=== PATIENT | female | born 1970 | race Caucasian/White ===

== ENCOUNTER → 2016-10-16 | Outpatient (CLI) | payer BC ==
--- NOTE | 2016-10-16 11:21 | MM ---
Reason for exam: follow-up at short interval from prior study. Last mammogram was performed 9 months ago. History: Patient is postmenopausal. Family history of breast cancer in maternal grandmother at age 42. Benign US biopsy breast VAD LT of the left breast, January 06, 2016. Benign US biopsy breast add'l VAD LT of the left breast, January 06, 2016. Benign US biopsy breast add'l VAD LT of the left breast, January 06, 2016. Physical Findings: Nurse did not find any significant physical abnormalities on exam. MG Diagnostic Mammo LT w CAD CC and MLO view(s) were taken of the left breast. Prior study comparison: January 06, 2016, left breast MG diagnostic mammo LT wo CAD. December 16, 2015, bilateral US breast workup SHAZIA. December 16, 2015, bilateral MG work up mamm w CAD BILAT. There are scattered fibroglandular densities. There is chronic nodularity in the left breast. These results were verbally communicated with the patient and result sheet given to the patient on 10/16/16. ASSESSMENT: Benign, BI-RAD 2 RECOMMENDATION: Follow-up diagnostic mammogram of both breasts in 2 months. Back on schedule December 2016.
--- NOTE | 2016-10-16 11:21 | USB ---
Reason for exam: additional evaluation requested from abnormal screening. History: Patient is postmenopausal. Family history of breast cancer in maternal grandmother at age 42. Benign US biopsy breast VAD LT of the left breast, January 06, 2016. Benign US biopsy breast add'l VAD LT of the left breast, January 06, 2016. Benign US biopsy breast add'l VAD LT of the left breast, January 06, 2016. US Breast LT Left breast ultrasound includes all four quadrants, the retroareolar region and axilla. Finding demonstrate a 0.5 x 0.9 x 0.2cm oval, too small to characterize lesion at 7 o'clock, and a 0.8 x 0.7 x 0.6cm benign lymph node at the axilla tail. These results were verbally communicated with the patient and result sheet given to the patient on 10/16/16. ASSESSMENT: Probably benign, BI-RAD 3 RECOMMENDATION: Follow-up diagnostic mammogram of both breasts in 2 months. Back on schedule December 2016.
== END | disposition home or self-care (01) ==
LOC: RADMAMWWP 07:32
PROVIDERS: ATTEND Family Medicine
DX: N60.12 Diffuse cystic mastopathy of left breast (principal)
CPT/HCPCS: 76641; G0206

== ENCOUNTER → 2016-12-20 | Outpatient (CLI) | payer BC ==
--- NOTE | 2016-12-20 08:29 | MM ---
Reason for exam: follow-up at short interval from prior study. Last mammogram was performed 2 months ago. History: Patient is postmenopausal. Family history of breast cancer in maternal grandmother at age 42. Benign US biopsy breast VAD LT of the left breast, January 06, 2016. Benign US biopsy breast add'l VAD LT of the left breast, January 06, 2016. Benign US biopsy breast add'l VAD LT of the left breast, January 06, 2016. Physical Findings: Nurse did not find any significant physical abnormalities on exam. MG Diagnostic Mammo w CAD SHAZIA Bilateral CC and MLO view(s) were taken. Prior study comparison: October 16, 2016, left breast MG diagnostic mammo LT w CAD. January 06, 2016, left breast MG diagnostic mammo LT wo CAD. There are scattered fibroglandular densities. Previous mammotome biopsy in the left breast x 3. There is chronic nodularity bilaterally. Asymmetric density superior right breast middle to posterior depth does not persist on additional views. No significant new findings when compared with previous films. These results were verbally communicated with the patient and result sheet given to the patient on 12/20/16. ASSESSMENT: Benign, BI-RAD 2 RECOMMENDATION: Routine screening mammogram of both breasts in 1 year.
== END | disposition home or self-care (01) ==
LOC: RADMAMWWP 07:00
PROVIDERS: ATTEND Family Medicine
DX: R92.8 Other abnormal and inconclusive findings on diagnostic imaging of breast (principal)

== ENCOUNTER 2017-09-07 10:19 | Day surgery (SDC) | payer BC ==
[2017-09-06 11:08] VITALS: BMI 30.1
[~2017-09-07 10:19] MED LIST: LACTATED RINGERS 1,000 ML IV SCH
[2017-09-07] MEDS ORDERED: PROPOFOL 10 MG/ML 20 ML VIAL IV ONE (11:19)
--- NOTE | 2017-09-07 11:43 | P.PCN ---
Date of Procedure: 09/07/17 Procedure(s) Performed: BRIEF HISTORY: Patient is a 47-year-old pleasant white female, scheduled for an elective colonoscopy as a part of the [place] she of prior history of colon polyps and family history of colon cancer. Her mother was diagnosed with colon cancer as well as her paternal grandmother. PROCEDURE PERFORMED: Colonoscopy with snare polypectomy. PREOPERATIVE DIAGNOSIS: History of colon polyps/family history of colon cancer. IV sedation per Anesthesia. PROCEDURE: After informed consent was obtained, the patient, was brought into the endoscopy unit. IV sedation was administered by Anesthesia under continuous monitoring. Digital rectal examination was normal. Initially the Olympus CF- 160 flexible video colonoscope was then inserted in the rectum, gradually advanced into the cecum without any difficulty. Careful examination was performed as the scope was gradually being withdrawn. Ileocecal valve and the appendiceal orifice were visualized and appeared normal. Prep was excellent. Mucosa of the cecum, ascending colon, appeared normal. In the proximal transverse colon there was a 5 mm sessile polyp removed by snare polypectomy. Rest of the transverse colon, descending colon, sigmoid colon, and rectum appeared normal. In the mid rectum there was another 5 mm sessile polyp removed by snare polypectomy. Retroflexion was performed in the rectum and no lesions were seen. The patient tolerated the procedure well. IMPRESSION: 5 mm sessile transverse colon polyp status post polypectomy 5 mm mid rectal polyp status post polypectomy RECOMMENDATIONS: Findings of this examination were discussed with the patient is a family. She was advised to follow with the biopsy results. If the biopsy shows a tubular adenoma she can have a repeat colonoscopy in 5 years.
[2017-09-07 11:48] VITALS: RESP 16
[2017-09-07 12:01] VITALS: BP 103/60; PULSE 68
== END 2017-09-07 12:28 | disposition home or self-care (01) ==
LOC: ORWHC2ENDO 10:19
PROVIDERS: ATTEND Internal Medicine Gastroenterology
DX: Z12.11 Encounter for screening for malignant neoplasm of colon (principal); D12.3 Benign neoplasm of transverse colon; D12.8 Benign neoplasm of rectum; Z86.010 Personal history of colon polyps; Z80.0 Family history of malignant neoplasm of digestive organs; Z72.0 Tobacco use; Z79.890 Hormone replacement therapy; Z79.899 Other long term (current) drug therapy; Z88.6 Allergy status to analgesic agent; Z91.040 Latex allergy status
CPT/HCPCS: 81025; 88305; 45385; J2704

== ENCOUNTER → 2018-04-10 | Outpatient (CLI) | payer BC ==
--- NOTE | 2018-04-11 08:03 | MM ---
Reason for exam: screening (asymptomatic). Last mammogram was performed 1 year and 4 months ago. History: Patient is postmenopausal. Family history of breast cancer in maternal grandmother at age 42. Benign US biopsy breast VAD LT of the left breast, January 06, 2016. Benign US biopsy breast add'l VAD LT of the left breast, January 06, 2016. Benign US biopsy breast add'l VAD LT of the left breast, January 06, 2016. Physical Findings: A clinical breast exam by your physician is recommended on an annual basis and results should be correlated with mammographic findings. MG Screening Mammo w CAD Bilateral CC and MLO view(s) were taken. Prior study comparison: December 20, 2016, bilateral MG diagnostic mammo w CAD SHAZIA. October 16, 2016, left breast MG diagnostic mammo LT w CAD. There are scattered fibroglandular densities. Previous mammotome biopsy in the right breast x 3. 1 o'clock right breast and 12 o'clock left breast focal asymmetries appear more defined. ASSESSMENT: Incomplete: need additional imaging evaluation, BI-RAD 0 RECOMMENDATION: Special view mammogram of both breasts. If lesion persists on supplemental views, image directed ultrasound is recommended. [facility] will attempt to contact patient to return for supplemental views and ultrasound if indicated.
== END ==
LOC: RADMAMWWP 06:53
PROVIDERS: ATTEND Family Medicine
DX: Z12.31 Encounter for screening mammogram for malignant neoplasm of breast (principal)
CPT/HCPCS: 77067

== ENCOUNTER → 2018-04-29 | Outpatient (CLI) | payer BC ==
--- NOTE | 2018-04-29 08:00 | MM ---
Reason for exam: additional evaluation requested from abnormal screening. Last mammogram was performed 1 month ago. History: Patient is postmenopausal. Family history of breast cancer in maternal grandmother at age 42. Benign US biopsy breast VAD LT of the left breast, January 06, 2016. Benign US biopsy breast add'l VAD LT of the left breast, January 06, 2016. Benign US biopsy breast add'l VAD LT of the left breast, January 06, 2016. Taking estrogen for 1 year beginning at age 47. Taking progesterone for 1 year beginning at age 47. Physical Findings: Nurse did not find any significant physical abnormalities on exam. MG Work Up Mamm w CAD BILAT Bilateral spot compression CC, spot compression MLO, and LM view(s) were taken. Prior study comparison: April 10, 2018, bilateral MG screening mammo w CAD. December 20, 2016, bilateral MG diagnostic mammo w CAD SHAZIA. There are scattered fibroglandular densities. Previous mammotome biopsy in the left breast x 3. Focal asymmetry on the left disperses on additional views. On the right the asymmetric density medially CC view becomes less defined and 6 month follow up is recommended. No persisting abnormality on the other views. These results were verbally communicated with the patient and result sheet given to the patient on 04/29/18. ASSESSMENT: Probably benign, BI-RAD 3 RECOMMENDATION: Follow-up diagnostic mammogram of the right breast in 6 months.
== END | disposition home or self-care (01) ==
LOC: RADMAMWWP 07:04
PROVIDERS: ATTEND Family Medicine
DX: R92.8 Other abnormal and inconclusive findings on diagnostic imaging of breast (principal)
CPT/HCPCS: 77066

== ENCOUNTER 2019-04-24 16:55 | Inpatient (IN) | payer BC ==
[2019-04-24] MEDS ORDERED: VERAPAMIL 2.5 MG/ML 2 ML AMP ONE (17:29)
[2019-04-24] MEDS ORDERED: fentaNYL (PF) 50 MCG/ML 2 ML AMP IVP ONE (17:30)
[2019-04-24] MEDS ORDERED: LIDOCAINE 1% INJ 10MG/ML (20 ML MDV) ONE (17:30)
[2019-04-24] MEDS ORDERED: LIDOCAINE 1% INJ 10MG/ML (20 ML MDV) SQ ONE (17:30)
[2019-04-24] MEDS ORDERED: fentaNYL (PF) 50 MCG/ML 2 ML AMP ONE (17:30)
[2019-04-24] MEDS ORDERED: VERAPAMIL SYRINGE (5 MG/10 ML) INTRAARTER ONE (17:32)
[2019-04-24] MEDS ORDERED: TICAGRELOR 90 MG TAB ONE (17:42)
[2019-04-24] MEDS ORDERED: BIVALIRUDIN 250 MG in SODIUM CHLORIDE 0.9% 50 ML IV ONE (17:45)
[2019-04-24] MEDS ORDERED: BIVALIRUDIN BOLUS 250 MG/50 ML IV ONE (17:45)
[2019-04-24] MEDS ORDERED: TICAGRELOR 90 MG TAB PO ONE (17:45)
[2019-04-24] MEDS ORDERED: IV FLUID CONTINUATION 1,000 ML IV ONE (17:45)
[2019-04-24] MEDS ORDERED: IOPAMIDOL-370 125ML BTL INJ ONE ×2 (17:48→18:06)
[2019-04-24] MEDS ORDERED: RX INFO: IV CONTRAST WAS GIVEN 1 EACH MISC MISCELLANE PRN (18:15)
[2019-04-24] MEDS ORDERED: MAG HYDROX/AL HYDROX/SIMETH 30 ML CUP PO PRN (18:15)
[2019-04-24] MEDS ORDERED: NITROGLYCERIN SL TABS 0.4 MG TAB SUBLINGUAL PRN (18:15)
[2019-04-24] MEDS ORDERED: ATROPINE SULFATE 0.1 MG/ML 10ML SYRINGE IV PRN (18:15)
[2019-04-24] MEDS ORDERED: ZOLPIDEM 5 MG TAB PO PRN (18:15)
[2019-04-24] MEDS ORDERED: SODIUM CHLORIDE 0.9% 1,000 ML IV SCH (18:15)
[2019-04-24 19:18] LABS: Glucose,Whole Blood 107 mg/dL (75-99)
[2019-04-24 19:57] LABS: Cholesterol 207 mg/dL (<200); HDL Cholesterol 60 mg/dL (40-60); LDL Cholesterol,Calculated 131 mg/dL (0-99); Triglycerides 78 mg/dL (<150)
--- NOTE | 2019-04-24 20:13 | CONS ---
CONSULTATION Mrs. Orellana is a 49-year-old female with no prior documented history of coronary artery disease who presented to [facility] with chest and abdominal discomfort that started at 6:00 in the morning and persisted. In the emergency room at [facility], initial EKG showed nonspecific ST-T wave changes. She subsequently had a CT scan of the abdomen and chest that revealed no evidence of aneurysm or dissection, but the patient persisted in having chest pain. Subsequently her EKG showed ST-segment depression and mild troponin elevation. In view of that, she was transferred to [facility] to undergo emergent cardiac catheterization. The patient has no prior documented history of cardiac disease. She has been having this epigastric and lower chest discomfort for a while, at times with mental stress or physical stress, and she thought it was related to GI origin. She has no history of myocardial infarction or congestive heart failure. No PND, orthopnea or peripheral edema. Her coronary risk factors are negative for hypertension or diabetes. Her lipid profile is not available. She is a nonsmoker. As to her medication at home, she is on hormonal treatment for menopause. REVIEW OF SYSTEMS: RESPIRATORY SYSTEM: She has no documented history of asthma, emphysema or bronchitis. GI SYSTEM: No recent GI bleeding. No peptic ulcer disease. SYSTEM: No dysuria or hematuria. NERVOUS SYSTEM: No stroke or seizure. PHYSICAL EXAMINATION: She is a 49-year-old female, alert, oriented, in no apparent distress. Evaluated in the cardiac catheterization laboratory. Blood pressure 140/70 with a heart rate in the 60s. Patient is having moderate discomfort. HEAD: Normocephalic. EYES: Sclerae anicteric. NECK: Good carotid upstroke. No bruit. No jugular venous distention. LUNGS: Clear to auscultation. HEART: Regular rate and rhythm. S1, S2. No S3. No S4. No murmur or rub. ABDOMEN: Soft, nontender, obese. Positive bowel sounds. No organomegaly. EXTREMITIES: No edema. Intact distal pulses. LAB DATA: EKG performed at 1:20 revealed sinus mechanism, normal axis and intervals with minor ST- segment changes in the inferolateral leads. Subsequent EKG showed more prominent ST- segment depression and mild elevation in aVL and V2. Patient had a CT scan that revealed no aneurysmal dilatation. Her potassium 4.6, BUN and creatinine 17 and 0.9. Troponin 2.26. IMPRESSION: 1. Acute qbk-HN-sgnjipd-elevation myocardial infarction. 2. No evidence of aneurysm. RECOMMENDATIONS: In view of findings and anatomy, I have recommended proceeding with cardiac catheterization. The procedure, its risks and complications were discussed with the patient, who is in full understanding and agreement. MMMERLEL / IJN: [id number] /
--- NOTE | 2019-04-24 20:23 | CC ---
CARDIAC CATHETERIZATION REPORT Mrs. Orellana is a 49-year-old female who presented to [facility] with symptoms of epigastric and chest discomfort, had elevation of the troponin, mild EKG changes, and she was transferred to [facility] to undergo cardiac catheterization. The procedure, its risks and complications were discussed with the patient, who was in full understanding and agreement. PROCEDURE DESCRIPTION: Patient was brought to the labor and delivery nurse. She received fentanyl and Benadryl. After achieving moderate conscious sedated state, using Xylocaine anesthesia and Seldinger technique a 6-Bengali sheath was introduced in the right radial artery. Selective right and left coronary angiography was performed with 6-Bengali 3.5 bend right and left Talia guiding catheters. Images of the coronary arteries were performed. Following that, angioplasty and stenting of the diagonal branch was performed. Following that, a 5-Bengali tight pigtail catheter was introduced in the left ventricle and a 30-degree CASTRO view of the left ventricle was obtained. Following that, catheter and sheath were removed. Hemostasis was obtained with deployment of a TR band. There was no immediate complication. Patient was returned to her room in stable condition. Of note, the patient received intra-arterial verapamil. FINDINGS: LEFT MAIN: This is a large-sized vessel bifurcating into left circumflex, left anterior descending artery. Left main coronary artery has no evidence of high-grade stenosis. LEFT ANTERIOR DESCENDING ARTERY: This is a large-sized vessel reaching toward the apex with a wrap around the apex segment giving rise to a moderately sized diagonal branch proximally. The LAD has no evidence of obstructive disease. The diagonal branch is subtotally occluded proximally with minimal antegrade flow. LEFT CIRCUMFLEX: This is a nondominant vessel giving rise to 2 obtuse marginal branches of large caliber. The left circumflex as well as its branches have no evidence of obstructive coronary artery disease. RIGHT CORONARY ARTERY: This is a large dominant vessel bifurcating into PDA and posterolateral segment and branches. The right coronary artery as well as its branches have no evidence of obstructive coronary artery disease. LEFT VENTRICULOGRAM: Left ventriculogram was performed in 30-degree CASTRO view and revealed anteroapical severe hypokinesis. The ejection fraction is estimated at 35%. There was no mitral regurgitation. HEMODYNAMICS: There was no gradient across the aortic valve. The left ventricular end-diastolic pressure was 10 to 12 mmHg. CONCLUSION: 1. Subtotally occluded first diagonal branch. 2. Severely impaired left ventricular systolic function. RECOMMENDATIONS: In view of findings and anatomy, I have recommended proceeding with angioplasty and stenting of the diagonal branch. The procedure, its risks and complications were discussed with the patient, who is in full understanding and agreement. MMMERLEL / KAYKAY: [id number] /
[2019-04-24] MEDS: TICAGRELOR 90 MG TAB PO SCH (20:36)
[2019-04-24] MEDS: METOPROLOL TARTRATE 25 MG TAB PO SCH (20:36)
[2019-04-24] MEDS: ATORVASTATIN 80 MG TAB PO SCH (20:36)
--- NOTE | 2019-04-24 20:44 | LTR ---
April 24, 2019 To: Dr. Linares Re: Bouchra Orellana (72) Dear Dr. Linares, I had the pleasure of performing coronary angiography and angioplasty and stenting on Mrs. Orellana at [facility] on April 24, and a full copy of the procedure notes will be forwarded to you. In brief, she was found to have a subtotally occluded first diagonal branch and underwent successful stenting of that vessel. I am hopeful that this procedure will stabilize her status. Thank you again for allowing me to participate in her care. Please feel free to call with any questions. Sincerely yours, Megan Denney M.D. GIACOMO / KAYKAY: [id number] /
--- NOTE | 2019-04-24 20:44 | PTCA ---
PERCUTANEOUSTRANS CORORONARY ANGIOGRAPHY Mrs. Orellana is a 49-year-old female with no prior documented history of coronary artery disease who presented to [facility] with an acute non-STEMI and underwent cardiac catheterization, was found to have subtotally occluded first diagonal branch. Recommendation was made regarding angioplasty and stenting. The procedure, its risks and complications were discussed with the patient, who was in full understanding and agreement. PROCEDURE DESCRIPTION: Using the 6-[place]izen [place] FR3.5 guiding catheter, a 0.014 balanced medium weight J-wire was advanced across the lesion, positioned in the distal diagonal branch. Subsequently a 2.5 x 12 mm Trek balloon was advanced and one inflation at 8 atmospheres was done. Following that, the balloon was removed and a 2.5 x 15 mm Xience Claudia stent was deployed, post dilated at 16 atmospheres. After the last inflation, after appropriate wait, the balloon and the guidewire were withdrawn back into the guiding catheter. Images were obtained repeated. Those images revealed stable successful stenting. At that point, the guiding catheter, the balloon and the guidewire were removed. Left ventriculogram was performed. Following that, catheter and sheath were removed. Hemostasis was obtained with deployment of a TR band. There was no immediate complication. Patient was returned to her room in stable condition. Of note, the patient received Angiomax per protocol as well as oral loading dose of Brilinta. At the end procedure, her chest discomfort had resolved and her dyspnea resolved as well. RESULTS: Successful stenting of the first diagonal branch with reduction of stenosis from 99% to 0%. RECOMMENDATIONS: Patient will be continued on aspirin, Brilinta, beta tori, NUVIA inhibitor and statin. The importance of dual antiplatelet treatment was discussed with the patient and her family, and they are in full understanding and agreement. Duration of procedure was 31 minutes. MMODL / IJN: [id number] /
[2019-04-25 06:04] LABS: African American GFR (CKD) >90 (>60 ml/min/1.73 sqM); Blood Urea Nitrogen 10 mg/dL (7-17); Calcium 9.1 mg/dL (8.4-10.2); Carbon Dioxide 23 mmol/L (22-30); Chloride 108 mmol/L (98-107); Glucose 107 mg/dL (74-99); Non-African American GFR(CKD) >90 (>60 ml/min/1.73 sqM)
[2019-04-25 06:06] LABS: Anion Gap 7 mmol/L; Potassium 4.4 mmol/L (3.5-5.1); Sodium 138 mmol/L (137-145)
[2019-04-25] MEDS: SPIRONOLACTONE 25 MG TAB PO SCH (09:01)
[2019-04-25] MEDS: LISINOPRIL 2.5 MG TAB PO SCH (09:01)
[2019-04-25] MEDS: ASPIRIN 81 MG PO SCH (09:01)
[2019-04-25] MEDS: TICAGRELOR 90 MG TAB PO SCH ×2 (09:01→20:27)
[2019-04-25] MEDS: METOPROLOL TARTRATE 25 MG TAB PO SCH ×2 (09:01→23:38)
[2019-04-25 10:30] VITALS: BMI 32.1
--- NOTE | 2019-04-25 12:32 | PN ---
PROGRESS NOTE The patient was transferred from [facility] with non-Q-wave myocardial infarction. The patient is feeling better. Denies any chest pain. Denies any shortness of breath. Patient had a subtotally occluded diagonal branch. Blood pressure is 115/71 mmHg, heart rate is 76 per minute. First and second heart sounds are normal. Lungs are clinically clear to auscultation and percussion. The patient's maximum troponin was 44 that was noted. Continue the current medications. She will be ambulated. If she remains stable, she will be discharged home tomorrow. MMODL / LEONARDON: [id number] /
--- NOTE | 2019-04-25 13:18 | ECHOF ---
Referral Reason:mi MEASUREMENTS -------- HEIGHT: 172.7 cm WEIGHT: 95.7 kg BP: 115/71 RVIDd: 2.3 cm (< 3.3) IVSd: 1.2 cm (0.6 - 1.1) LVIDd: 4.6 cm (3.9 - 5.3) LVPWd: 1.2 cm (0.6 - 1.1) IVSs: 1.4 cm LVIDs: 3.3 cm LVPWs: 1.7 cm LA Diam: 3.1 cm (2.7 - 3.8) Ao Diam: 3.4 cm (2.0 - 3.7) AV Cusp: 2.3 cm (1.5 - 2.6) MV EXCURSION: 17.614 mm (> 18.000) MV EF SLOPE: 101 mm/s (70 - 150) EPSS: 0.9 cm MV E Brendon: 0.60 m/s MV DecT: 224 ms MV A Brendon: 0.77 m/s MV E/A Ratio: 0.78 FINDINGS -------- Sinus rhythm. This was a technically good study. The left ventricular size is normal. There is borderline concentric left ventricular hypertrophy. Overall left ventricular systolic function is moderately impaired with, an EF between 35 - 40 %. M id anterior LV wall motion is hypokinetic. Mid lateral LV wall motion is hypokinetic. Apical an terior LV wall motion is hypokinetic. Apical lateral LV wall motion is hypokinetic. The right ventricle is normal in size. Normal LA size by volume 22+/-6 ml/m2. The right atrium is normal in size. Interatrial and interventricular septum intact. The aortic valve is trileaflet and appears structurally normal. The mitral valve is normal. The tricuspid valve appears structurally normal. Trace/mild (physiologic) pulmonic regurgitation. The aortic root size is normal. Normal inferior vena cava with normal inspiratory collapse consistent with estimated right atrial pre ssure of 5 mmHg. There is no pericardial effusion. CONCLUSIONS -------- 1. Sinus rhythm. 2. This was a technically good study. 3. The left ventricular size is normal. 4. There is borderline concentric left ventricular hypertrophy. 5. Overall left ventricular systolic function is moderately impaired with, an EF between 35 - 40 %. 6. Mid anterior LV wall motion is hypokinetic. 7. Mid lateral LV wall motion is hypokinetic. 8. Apical anterior LV wall motion is hypokinetic. 9. Apical lateral LV wall motion is hypokinetic. 10. The right ventricle is normal in size. 11. Normal LA size by volume 22+/-6 ml/m2. 12. The right atrium is normal in size. 13. Interatrial and interventricular septum intact. 14. The aortic valve is trileaflet and appears structurally normal. 15. The mitral valve is normal. 16. The tricuspid valve appears structurally normal. 17. Trace/mild (physiologic) pulmonic regurgitation. 18. The aortic root size is normal. 19. Normal inferior vena cava with normal inspiratory collapse consistent with estimated right atrial pressure of 5 mmHg. 20. There is no pericardial effusion. MAGNETIC PROSPECTOR: Brianda Krishnan RDCS
[2019-04-25] MEDS: IPRATROPIUM-ALBUTEROL 3 ML NEB INHALATION SCH ×2 (15:58→19:57)
--- NOTE | 2019-04-25 16:50 | P.HPIM ---
History of Present Illness H&P Date: 04/25/19 Chief Complaint: Chest pain History of presenting complaint: This is a pleasant 49-year-old patient of Dr. Linraes. Chronic stable medical conditions include depression, hypertension, GERD, patient is smoker. Patient denied before started having some epigastric pain and by following morning that is yesterday. Become rather severe in the epigastric area. It was radiating to the back slight nausea no fever no chills. Patient is very uncomfortable writhing in bed. Patient had a previous cholecystectomy. Patient has seen by me in the ER at [facility]. Patient's and [id number] are present. His troponin came back at 2.2 and EKG questioning depression. Second troponin came back at 4.4. Patient was transferred here [facility] and was taken to the cardiac catheterization lab. Diagonal was stented. Eyelid today patient is feeling better. No chest pain some shortness of breath shortness of breath. Patient did have a CT angiography chest abdomen pelvis above the hospital that was essentially negative. Review of systems: GEN.: Tired EYES: None HEENT: None NECK: None RESPIRATORY: Some shortness of breath] CARDIOVASCULAR: None GASTROINTESTINAL: Reflux GENITOURINARY: None MUSCULOSKELETAL: None LYMPHATICS: None HEMATOLOGICAL: None PSYCHIATRY: Slightly anxious NEUROLOGICAL: None Past medical history to include: Depression, hypertension, GERD, Social history: Smoked a pack a day for over 30 years. . Employed. Family history: Of heart disease Physical examination: VITAL SIGNS: 98, 71, 18, 96/69, 97% on 2 L GENERAL: [32.2, sitting up. In a chair, a bit tired. EYES: Pupils equal. Conjunctiva normal. HEENT: External appearance of nose and ears normal, oral cavity grossly normal. NECK: JVD not raised; masses not palpable. HEART: First and second heart sounds are normal; no edema. LUNGS: Respiratory rate normal; decreased breath sounds mild wheezing. ABDOMEN: Soft, nontender, liver spleen not palpable, no masses palpable. PSYCH: Alert and oriented x3; mood and affect normal. NEUROLOGICAL: Cranial nerves grossly intact; no facial asymmetry, power and sensation grossly intact. LYMPHATICS: No lymph nodes palpable in the axilla and neck INVESTIGATIONS, reviewed in the clinical context: Troponin at [facility] was 2. 2 repeat 4.4. Initial troponin here was 18.8 yesterday. LDL 131 EKG at [facility] short severe ST depression in inferior leads. Personally reviewed by me 2-D echo-EF 35-40%, with wall motion abnormality , Assessment: -Acute non-Q-wave myocardial infarction, POA -Emergent cardiac catheterization with stenting to the first diagonal branch with the initial stenosis 99 percent. -Obesity BMI 32.2 -Depression not otherwise specified -Essential hypertension -Chronic nicotine dependence patient cigarette smoker -GERD -COPD in a current smoker -Acute ischemic cardiomyopathy from EF 35-40% from underlying acute NV Plan: -Patient postprocedure is in the ICU. Currently on aspirin, Lipitor, Zestril, Lopressor, Aldactone and Brilinta. Care was discussed with the patient question were answered. We'll add DuoNeb and Pulmicort. Smoke cessation counseling: This was done with the patient. Nicotine patch is being given. More than 3 minutes was spent for this Past Medical History Past Medical History: No Reported History, Chest Pain / Angina Additional Past Medical History / Comment(s): 04/24/2019 NSTEMI History of Any Multi-Drug Resistant Organisms: None Reported Past Surgical History: Cholecystectomy, Heart Catheterization With Stent, Orthopedic Surgery, Tubal Ligation Additional Past Surgical History / Comment(s): RIGHT AND LEFT HIP SURGERY for "pelvic tilt". 04/24/2019 NSTEMI with (L) Heart cath and Xience 2.5/15mm stent x 1 to Diag1 (by Dr. Denney) Past Anesthesia/Blood Transfusion Reactions: No Reported Reaction Date of Last Stent Placement:: 04/24/2019 Smoking Status: Current some day smoker - Past Family History Mother Family Medical History: Cancer Medications and Allergies Home Medications Medication Instructions Recorded Confirmed Type Cholecalciferol [Vitamin D3] 1,000 unit PO DAILY 09/06/17 04/24/19 History Citalopram Hydrobromide [CeleXA] 20 mg PO HS 09/06/17 04/24/19 History Eszopiclone [Lunesta] 3 mg PO HS 09/06/17 04/24/19 History Progesterone, Micronized 100 mg PO HS 09/06/17 04/24/19 History [Progesterone] Spironolactone [Aldactone] 50 mg PO HS 09/06/17 04/24/19 History Cyanocobalamin (Vitamin B-12) 1,000 mcg PO HS 04/24/19 04/24/19 History [Vitamin B-12] Estradiol [Estradiol 0.1 MG Patch] 1 patch TRANSDERM JACOBS 04/24/19 04/24/19 History Allergies Allergy/AdvReac Type Severity Reaction Status Date / Time aspirin Allergy Rash/Hives, Verified 04/24/19 19:44 SOB latex Allergy Rash/Hives Verified 04/24/19 19:44 Opioids-Meperidine and Allergy Dyspnea, Verified 04/24/19 19:44 Related HIVES Physical Exam Vitals: Vital Signs Temp Pulse Resp BP Pulse Ox 04/25/19 07:00 76 14 115/71 97 04/25/19 06:00 67 15 110/70 97 04/25/19 05:00 67 16 111/65 97 04/25/19 04:00 98.1 F 63 19 114/69 96 04/25/19 03:00 64 12 110/71 97 04/25/19 02:00 65 18 106/69 97 04/25/19 01:00 63 13 106/69 100 04/25/19 00:45 63 14 108/68 97 04/25/19 00:30 64 14 108/68 97 04/25/19 00:15 98.9 F 68 17 108/68 97 04/25/19 00:00 70 17 110/70 96 04/24/19 23:55 97 04/24/19 23:45 64 12 112/73 97 04/24/19 23:30 64 11 L 109/72 96 04/24/19 23:15 64 12 114/72 97 04/24/19 23:00 64 13 118/77 97 04/24/19 22:45 63 15 111/75 98 04/24/19 22:30 60 14 116/78 98 04/24/19 22:15 58 L 13 115/72 98 04/24/19 22:00 62 14 120/83 96 04/24/19 21:45 75 13 119/83 97 04/24/19 21:30 63 18 121/85 97 04/24/19 21:15 64 15 121/78 97 04/24/19 21:00 64 13 108/76 96 04/24/19 20:45 64 15 114/76 96 04/24/19 20:30 64 14 120/82 98 04/24/19 20:15 63 13 108/73 97 04/24/19 20:00 98.6 F 73 13 121/78 98 04/24/19 19:45 77 16 114/73 98 04/24/19 19:30 68 4 L 118/78 98 04/24/19 19:15 65 11 L 109/40 97 04/24/19 19:10 98.6 F 65 16 109/40 94 L Intake and Output 04/24/19 04/25/19 04/25/19 22:59 06:59 14:59 Intake Total 474 700 0 Output Total 950 500 0 Balance -476 200 0 Intake: IV 374 700 0 Sodium Chloride 0.9% 1, 300 700 0 000 ml @ 100 mls/hr IV . Q10H NAIN Rx#:[id number] Intake, IV Titration 100 Amount Sodium Chloride 0.9% 1, 100 000 ml @ 100 mls/hr IV . Q10H NAIN Rx#:[id number] Output: Urine 950 500 0 Other: Voiding Method Bedpan Bedpan Weight 96.2 kg 96 kg 96 kg Results CBC & Chem 7: 04/25/19 05:36 Labs: Abnormal Lab Results - Last 24 Hours (Table) 04/24/19 04/24/19 04/24/19 Range/Units 19:06 19:06 19:11 Chloride (98-107) mmol/L Glucose (74-99) mg/dL POC Glucose (mg/dL) 107 H (75-99) mg/dL Troponin I 18.800 H* (0.000-0.034) ng/mL Cholesterol 207 H (<200) mg/dL LDL Cholesterol, Calc 131 H (0-99) mg/dL 04/25/19 04/25/19 04/25/19 Range/Units 00:51 05:36 06:56 Chloride 108 H (98-107) mmol/L Glucose 107 H (74-99) mg/dL POC Glucose (mg/dL) (75-99) mg/dL Troponin I 44.100 H* 25.600 H* (0.000-0.034) ng/mL Cholesterol (<200) mg/dL LDL Cholesterol, Calc (0-99) mg/dL Thrombosis Risk Factor Assmnt - Choose All That Apply Any of the Below Risk Factors Present?: Yes Each Factor Represents 1 point: Acute NV, Age 41-60 years, Obesity (BMI >25) Other Risk Factors: No Other congenital or acquired thrombophilia - If yes, enter type in comment: No Thrombosis Risk Factor Assessment Total Risk Factor Score: 3 Thrombosis Risk Factor Assessment Level: Moderate Risk
[2019-04-25] MEDS: NICOTINE 21MG/24HR PATCH TRANSDERM SCH (19:12)
[2019-04-25] MEDS: BUDESONIDE 1 MG/2 ML NEBU INHALATION SCH (19:57)
[2019-04-25] MEDS: ATORVASTATIN 80 MG TAB PO SCH (20:27)
[2019-04-26] MEDS: IPRATROPIUM-ALBUTEROL 3 ML NEB INHALATION SCH ×2 (07:12→11:36)
[2019-04-26] MEDS: BUDESONIDE 1 MG/2 ML NEBU INHALATION SCH (07:13)
[2019-04-26] MEDS: METOPROLOL TARTRATE 25 MG TAB PO SCH (09:23)
[2019-04-26] MEDS: LISINOPRIL 2.5 MG TAB PO SCH (09:23)
[2019-04-26] MEDS: NICOTINE 21MG/24HR PATCH TRANSDERM SCH (09:23)
[2019-04-26] MEDS: SPIRONOLACTONE 25 MG TAB PO SCH (09:24)
[2019-04-26] MEDS: TICAGRELOR 90 MG TAB PO SCH (09:24)
[2019-04-26] MEDS: ASPIRIN 81 MG PO SCH (09:24)
[2019-04-26 12:32] VITALS: BP 90/63; PULSE 61; RESP 26; TEMP 98.1
--- NOTE | 2019-04-26 14:18 | PN ---
PROGRESS NOTE This patient is a non ST-segment elevation myocardial infarction and status post stent to the diagonal branch. The patient is doing well. Denies any chest pain. Denies any shortness of breath. Blood pressure is 106/65 mmHg. First and second heart sounds are normal. Lungs are clinically clear to auscultation and percussion. The patient has been ambulatory. She is doing well. She will be discharged home and follow up with Dr. Denney in 1 to 2 weeks. MMODL / IJN: [id number] /
--- NOTE | 2019-04-26 22:55 | P.DS ---
Providers Date of admission: 04/24/19 18:41 Expected date of discharge: 04/26/19 Attending physician: Cale Carrillo Consults: 04/24/19 18:15 Consult Physician Routine Consulting Provider: [facility] Consult Reason/Comments: Post Interventional patient Do you want consulting provider notified?: Already Contacted Primary care physician: [facility] Course: Chief Complaint: Chest pain Hospital course: This is a pleasant 49-year-old patient of Dr. Linares. Chronic stable medical conditions include depression, hypertension, GERD, patient is smoker. admitted with acute ID. He was transferred here from [facility] ER. Underwent intervention to the first diagnostic approach. Today-doing well. Up and about. Pretty stable. Care was discussed with the patient. Carcinoma smoking. Consultation: Dr. Denney from cardiology Physical examination: VITAL SIGNS: 98.1, 61, 26, 90/63, 97% room air GENERAL:BMI 30.9 sitting up. comfortable EYES: Pupils equal. Conjunctiva normal. HEENT: External appearance of nose and ears normal, oral cavity grossly normal. NECK: JVD not raised; masses not palpable. HEART: First and second heart sounds are normal; no edema. LUNGS: Respiratory rate normal; decreased breath sounds mild wheezing. ABDOMEN: Soft, nontender, liver spleen not palpable, no masses palpable. PSYCH: Alert and oriented x3; mood and affect normal. INVESTIGATIONS, reviewed in the clinical context: Troponin at [facility] was 2. 2 repeat 4.4. Initial troponin here was 18.8 yesterday. LDL 131 EKG at [facility] short severe ST depression in inferior leads. Personally reviewed by me 2-D echo-EF 35-40%, with wall motion abnormality , Assessment: -Acute non-Q-wave myocardial infarction, POA -Emergent cardiac catheterization with stenting to the first diagonal branch with the initial stenosis 99 percent. -Obesity BMI 32.2 -Depression not otherwise specified -Essential hypertension -Chronic nicotine dependence patient cigarette smoker -GERD -COPD in a current smoker -Acute ischemic cardiomyopathy from EF 35-40% from underlying acute ID disposition: Home Plan - Discharge Summary Discharge Rx Participant: No New Discharge Prescriptions: New Spironolactone [Aldactone] 25 mg PO DAILY tab Aspirin 81 mg PO DAILY chew Ticagrelor [Brilinta] 90 mg PO BID #60 tab Nicotine 21Mg/24Hr Patch [Habitrol] 1 patch TRANSDERM DAILY #14 patch Atorvastatin [Lipitor] 80 mg PO HS #30 tab Metoprolol Tartrate [Lopressor] 25 mg PO BID #60 tab Nitroglycerin Sl Tabs [Nitrostat] 0.4 mg SUBLINGUAL Q5M PRN #25 tab PRN Reason: Chest Pain Tiotropium [place] [Spiriva] 1 cap INHALATION DAILY #1 device Albuterol Inhaler [Ventolin Hfa Inhaler] 1 - 2 puff INHALATION RT-Q6H PRN #1 inhaler PRN Reason: Wheezing Lisinopril [Zestril] 2.5 mg PO DAILY@1400 #30 tab Continue Citalopram Hydrobromide [CeleXA] 20 mg PO HS Cholecalciferol [Vitamin D3 (25 Mcg = 1000 Iu)] 1,000 unit PO DAILY Progesterone, Micronized [Progesterone] 100 mg PO HS Eszopiclone [Lunesta] 3 mg PO HS Estradiol [Estradiol 0.1 MG Patch] 1 patch TRANSDERM JACOBS Cyanocobalamin (Vitamin B-12) [Vitamin B-12] 1,000 mcg PO HS Discontinued Spironolactone [Aldactone] 50 mg PO HS Discharge Medication List Cholecalciferol [Vitamin D3 (25 Mcg = 1000 Iu)] 1,000 unit PO DAILY 09/06/17 [History] Citalopram Hydrobromide [CeleXA] 20 mg PO HS 09/06/17 [History] Eszopiclone [Lunesta] 3 mg PO HS 09/06/17 [History] Progesterone, Micronized [Progesterone] 100 mg PO HS 09/06/17 [History] Cyanocobalamin (Vitamin B-12) [Vitamin B-12] 1,000 mcg PO HS 04/24/19 [History] Estradiol [Estradiol 0.1 MG Patch] 1 patch TRANSDERM JACOBS 04/24/19 [History] Albuterol Inhaler [Ventolin Hfa Inhaler] 1 - 2 puff INHALATION RT-Q6H PRN #1 inhaler 04/26/19 [Rx] Aspirin 81 mg PO DAILY chew 04/26/19 [Rx] Atorvastatin [Lipitor] 80 mg PO HS #30 tab 04/26/19 [Rx] Lisinopril [Zestril] 2.5 mg PO DAILY@1400 #30 tab 04/26/19 [Rx] Metoprolol Tartrate [Lopressor] 25 mg PO BID #60 tab 04/26/19 [Rx] Nicotine 21Mg/24Hr Patch [Habitrol] 1 patch TRANSDERM DAILY #14 patch 04/26/19 [Rx] Nitroglycerin Sl Tabs [Nitrostat] 0.4 mg SUBLINGUAL Q5M PRN #25 tab 04/26/19 [Rx] Spironolactone [Aldactone] 25 mg PO DAILY tab 04/26/19 [Rx] Ticagrelor [Brilinta] 90 mg PO BID #60 tab 04/26/19 [Rx] Tiotropium [place] [Spiriva] 1 cap INHALATION DAILY #1 device 04/26/19 [Rx] Follow up Appointment(s)/Referral(s): Megan Denney MD [STAFF PHYSICIAN] - 1 Week Omar Linares DO [STAFF PHYSICIAN] - 3 Days Patient Instructions/Handouts: Coronary Intravascular Stent Placement (DC) Activity/Diet/Wound Care/Special Instructions: f/u and dc orders from cardiology Discharge Disposition: HOME SELF-CARE
== END 2019-04-26 13:45 | disposition home or self-care (01) | DRG 247 ==
LOC: 2SICU 18:41
PROVIDERS: ADMIT Hospitalist; ATTEND Hospitalist
PROC: B2111ZZ Fluoroscopy of Multiple Coronary Arteries using Low Osmolar Contrast (ICD-10-PCS; principal; 2019-04-24 17:14)
PROC: B2151ZZ Fluoroscopy of Left Heart using Low Osmolar Contrast (ICD-10-PCS; principal; 2019-04-24 17:14)
PROC: 027034Z Dilation of Coronary Artery, One Artery with Drug-eluting Intraluminal Device, Percutaneous Approach (ICD-10-PCS; principal; 2019-04-24 17:14)
DX: I21.4 Non-ST elevation (NSTEMI) myocardial infarction (principal); F17.210 Nicotine dependence, cigarettes, uncomplicated; E66.9 Obesity, unspecified; J44.9 Chronic obstructive pulmonary disease, unspecified; I25.5 Ischemic cardiomyopathy; I11.9 Hypertensive heart disease without heart failure; F32.9 Major depressive disorder, single episode, unspecified; K21.9 Gastro-esophageal reflux disease without esophagitis; Z90.49 Acquired absence of other specified parts of digestive tract; Z82.49 Family history of ischemic heart disease and other diseases of the circulatory system; Z68.32 Body mass index [BMI] 32.0-32.9, adult; Z80.9 Family history of malignant neoplasm, unspecified; Z88.5 Allergy status to narcotic agent; Z88.6 Allergy status to analgesic agent; Z91.040 Latex allergy status
CPT/HCPCS: 80048; 80061; 84484; 85347; 93306; 93458; 94640; C1874

== ENCOUNTER 2019-05-22 18:29 | Observation (INO) | payer BC ==
[2019-05-22] MEDS ORDERED: ASPIRIN 81 MG PO STA (18:58)
[2019-05-22] MEDS ORDERED: NITROGLYCERIN OINT 1 INCH/GM PACKET TOPICAL STA (18:58)
--- NOTE | 2019-05-22 19:09 | ED ---
General Adult HPI - General Chief complaint: Chest Pain Stated complaint: Chest pain,SOB Time Seen by Provider: 05/22/19 18:35 Source: patient, RN notes reviewed, old records reviewed Mode of arrival: wheelchair Limitations: no limitations - History of Present Illness Initial comments: This is a 49-year-old female with past medical history significant for coronary artery disease. Patient states she's had stent placed recently. Patient states she's been having some intermittent chest pain and been relieving with nitroglycerin however today at about 5:00 she chest pain which was much more significant than previous chest pain and she was very short of breath with it. Patient states took 2 nitroglycerin which did help but she continues to have so me discomfort in the anterior chest. Patient denies any diaphoretic episodes. Patient denies any nausea. Patient denies abdominal pain patient denies any lightheadedness or dizziness. Patient denies any recent fever chills or cough. - Related Data Home Medications Medication Instructions Recorded Confirmed Cholecalciferol [Vitamin D3 (25 1,000 unit PO DAILY 09/06/17 05/22/19 Mcg = 1000 Iu)] Citalopram Hydrobromide [CeleXA] 20 mg PO HS 09/06/17 05/22/19 Eszopiclone [Lunesta] 3 mg PO HS 09/06/17 05/22/19 Progesterone, Micronized 100 mg PO HS 09/06/17 05/22/19 [Progesterone] Cyanocobalamin (Vitamin B-12) 1,000 mcg PO HS 04/24/19 05/22/19 [Vitamin B-12] Estradiol [Estradiol 0.1 MG Patch] 1 patch TRANSDERM JACOBS 04/24/19 05/22/19 Spironolactone 50 mg PO DAILY 05/22/19 05/22/19 Tiotropium [place] [Spiriva] 1 cap INHALATION RT-DAILY 05/22/19 05/22/19 Previous Rx's Medication Instructions Recorded Albuterol Inhaler [Ventolin Hfa 1 - 2 puff INHALATION RT-Q6H PRN 04/26/19 Inhaler] #1 inhaler Aspirin 81 mg PO DAILY chew 04/26/19 Atorvastatin [Lipitor] 80 mg PO HS #30 tab 04/26/19 Lisinopril [Zestril] 2.5 mg PO DAILY@1400 #30 tab 04/26/19 Metoprolol Tartrate [Lopressor] 25 mg PO BID #60 tab 04/26/19 Nitroglycerin Sl Tabs [Nitrostat] 0.4 mg SUBLINGUAL Q5M PRN #25 tab 04/26/19 Ticagrelor [Brilinta] 90 mg PO BID #60 tab 04/26/19 Allergies Allergy/AdvReac Type Severity Reaction Status Date / Time aspirin Allergy Rash/Hives, Verified 05/22/19 18:36 SOB latex Allergy Rash/Hives Verified 05/22/19 18:36 Opioids-Meperidine and Allergy Dyspnea, Verified 05/22/19 18:36 Related HIVES Review of Systems ROS Statement: Those systems with pertinent positive or pertinent negative responses have been documented in the HPI. ROS Other: All systems not noted in ROS Statement are negative. Past Medical History Past Medical History: Chest Pain / Angina Additional Past Medical History / Comment(s): 04/24/2019 NSTEMI History of Any Multi-Drug Resistant Organisms: None Reported Past Surgical History: Cholecystectomy, Heart Catheterization With Stent, Orthopedic Surgery, Tubal Ligation Additional Past Surgical History / Comment(s): RIGHT AND LEFT HIP SURGERY for "pelvic tilt". 04/24/2019 NSTEMI with (L) Heart cath and Xience 2.5/15mm stent x 1 to Diag1 (by Dr. Denney) Past Anesthesia/Blood Transfusion Reactions: No Reported Reaction Date of Last Stent Placement:: 04/24/2019 Past Psychological History: Depression Smoking Status: Current some day smoker Past Alcohol Use History: None Reported Past Drug Use History: None Reported - Past Family History Mother Family Medical History: Cancer General Exam - General Exam Comments Initial Comments: GENERAL: Patient is well-developed and well-nourished. Patient is nontoxic and well- hydrated and is in mild distress. ENT: Neck is soft and supple. No significant lymphadenopathy is noted. Oropharynx is clear. Moist mucous membranes. Neck has full range of motion without eliciting any pain. EYES: The sclera were anicteric and conjunctiva were pink and moist. Extraocular movements were intact and pupils were equal round and reactive to light. Eyelids were unremarkable. PULMONARY: Unlabored respirations. Good breath sounds bilaterally. No audible rales rhonchi or wheezing was noted. CARDIOVASCULAR: There is a regular rate and rhythm without any murmurs gallops or rubs. ABDOMEN: Soft and nontender with normal bowel sounds. No palpable organomegaly was noted. There is no palpable pulsatile mass. SKIN: Skin is clear with no lesions or rashes and otherwise unremarkable. NEUROLOGIC: Patient is alert and oriented x3. Cranial nerves II through XII are grossly intact. Motor and sensory are also intact. Normal speech, volume and content. Symmetrical smile. MUSCULOSKELETAL: Normal extremities with adequate strength and full range of motion. No lower extremity swelling or edema. No calf tenderness. LYMPHATICS: No significant lymphadenopathy is noted PSYCHIATRIC: Normal psychiatric evaluation. Limitations: no limitations Course Vital Signs 05/22/19 05/22/19 18:34 19:28 Temperature 98.0 F Pulse Rate 76 65 Respiratory 20 18 Rate Blood Pressure 104/68 109/62 O2 Sat by Pulse 99 100 Oximetry Medical Decision Making - Medical Decision Making EKG shows normal sinus rhythm at 66 bpm OK interval 250 QRS is 86 QT interval 428 QTC is 448 patient's EKG shows no ST segment elevation or depression. Chest x-ray shows no acute abnormality. I started the patient heparin because the unstable angina picture. I spoke with Dr. Carrillo agreed to admit the patient admitted the patient wrote admitting orders I consulted cardiology I continued heparin and aspirin and Nitropaste on the floor. - Lab Data Result diagrams: 05/22/19 19:21 05/22/19 19:21 Lab Results 05/22/19 05/22/19 05/22/19 Range/Units 19:21 19:21 19:21 WBC 9.0 (3.8-10.6) k/uL RBC 4.36 (3.80-5.40) m/uL Hgb 13.7 (11.4-16.0) gm/dL Hct 39.5 (34.0-46.0) % MCV 90.7 (80.0-100.0) fL MCH 31.3 (25.0-35.0) pg MCHC 34.6 (31.0-37.0) g/dL RDW 12.5 (11.5-15.5) % Plt Count 258 (150-450) k/uL Neutrophils % 64 % Lymphocytes % 23 % Monocytes % 6 % Eosinophils % 5 % Basophils % 1 % Neutrophils # 5.8 (1.3-7.7) k/uL Lymphocytes # 2.0 (1.0-4.8) k/uL Monocytes # 0.5 (0-1.0) k/uL Eosinophils # 0.4 (0-0.7) k/uL Basophils # 0.1 (0-0.2) k/uL PT 9.8 (9.0-12.0) sec INR 0.9 (<1.2) APTT 22.6 (22.0-30.0) sec Sodium 138 (137-145) mmol/L Potassium 4.1 (3.5-5.1) mmol/L Chloride 104 (98-107) mmol/L Carbon Dioxide 22 (22-30) mmol/L Anion Gap 12 mmol/L BUN 21 H (7-17) mg/dL Creatinine 0.93 (0.52-1.04) mg/dL Est GFR (CKD-EPI)AfAm 85 (>60 ml/min/1.73 sqM) Est GFR (CKD-EPI)NonAf 73 (>60 ml/min/1.73 sqM) Glucose 97 (74-99) mg/dL Calcium 9.7 (8.4-10.2) mg/dL Magnesium 2.0 (1.6-2.3) mg/dL Total Bilirubin 0.5 (0.2-1.3) mg/dL AST 33 (14-36) U/L ALT 33 (4-34) U/L Alkaline Phosphatase 111 (38-126) U/L Troponin I (0.000-0.034) ng/mL Total Protein 7.6 (6.3-8.2) g/dL Albumin 4.7 (3.5-5.0) g/dL 05/22/19 Range/Units 19:21 WBC (3.8-10.6) k/uL RBC (3.80-5.40) m/uL Hgb (11.4-16.0) gm/dL Hct (34.0-46.0) % MCV (80.0-100.0) fL MCH (25.0-35.0) pg MCHC (31.0-37.0) g/dL RDW (11.5-15.5) % Plt Count (150-450) k/uL Neutrophils % % Lymphocytes % % Monocytes % % Eosinophils % % Basophils % % Neutrophils # (1.3-7.7) k/uL Lymphocytes # (1.0-4.8) k/uL Monocytes # (0-1.0) k/uL Eosinophils # (0-0.7) k/uL Basophils # (0-0.2) k/uL PT (9.0-12.0) sec INR (<1.2) APTT (22.0-30.0) sec Sodium (137-145) mmol/L Potassium (3.5-5.1) mmol/L Chloride (98-107) mmol/L Carbon Dioxide (22-30) mmol/L Anion Gap mmol/L BUN (7-17) mg/dL Creatinine (0.52-1.04) mg/dL Est GFR (CKD-EPI)AfAm (>60 ml/min/1.73 sqM) Est GFR (CKD-EPI)NonAf (>60 ml/min/1.73 sqM) Glucose (74-99) mg/dL Calcium (8.4-10.2) mg/dL Magnesium (1.6-2.3) mg/dL Total Bilirubin (0.2-1.3) mg/dL AST (14-36) U/L ALT (4-34) U/L Alkaline Phosphatase (38-126) U/L Troponin I <0.012 (0.000-0.034) ng/mL Total Protein (6.3-8.2) g/dL Albumin (3.5-5.0) g/dL Critical Care Time Critical Care Time: Yes Total Critical Care Time: 35 Disposition Clinical Impression: Unstable angina pectoris Disposition: ADMITTED IP TO THIS HOSP Referrals: Omar Linares DO [Primary Care Provider] - 1-2 days Time of Disposition: 20:12
[2019-05-22 19:29] LABS: Basophils # (A) 0.1 k/uL (0-0.2); Basophils % (A) 1 %; Eosinophils # (A) 0.4 k/uL (0-0.7); Eosinophils % (A) 5 %; HCT 39.5 % (34.0-46.0); HGB 13.7 gm/dL (11.4-16.0); Lymphocytes % (A) 23 %; MCH 31.3 pg (25.0-35.0); MCHC 34.6 g/dL (31.0-37.0); MCV 90.7 fL (80.0-100.0); Mean Platelet Volume 9.1; Monocytes # (A) 0.5 k/uL (0-1.0); Monocytes % (A) 6 %; Neutrophils # (A) 5.8 k/uL (1.3-7.7); Neutrophils % (A) 64 %; Platelet Count 258 k/uL (150-450); RBC 4.36 m/uL (3.80-5.40); RDW 12.5 % (11.5-15.5)
[2019-05-22] MEDS ORDERED: HEPARIN SODIUM,PORCINE 5,000 UNIT/ML 1 ML VIAL IV ONE (19:31)
[2019-05-22 19:39] LABS: Albumin 4.7 g/dL (3.5-5.0); Calcium 9.7 mg/dL (8.4-10.2); Potassium 4.1 mmol/L (3.5-5.1); Total Bilirubin 0.5 mg/dL (0.2-1.3); Total Protein 7.6 g/dL (6.3-8.2)
[2019-05-22 19:40] LABS: INR 0.9 (<1.2); Partial Thromboplastin Time 22.6 sec (22.0-30.0); Prothrombin Time 9.8 sec (9.0-12.0)
[2019-05-22] MEDS ORDERED: HEPARIN SOD,PORK IN 0.45% NACL 25,000 UNIT in 0.45% NACL 1 250ML.BAG IV SCH (19:45)
--- NOTE | 2019-05-22 20:04 | XR ---
EXAMINATION TYPE: XR chest 2V DATE OF EXAM: 05/22/2019 COMPARISON: None INDICATION: Chest pain TECHNIQUE: Frontal and lateral views of the chest are obtained. FINDINGS: The heart size is normal. The pulmonary vasculature is normal. The lungs are clear. IMPRESSION: 1. No acute pulmonary process.
[2019-05-22] MEDS ORDERED: NITROGLYCERIN SL TABS 0.4 MG TAB SUBLINGUAL PRN (20:12)
[2019-05-22] MEDS ORDERED: HEPARIN SODIUM,PORCINE 5,000 UNIT/ML 1 ML VIAL IV PRN (23:00)
[2019-05-22] MEDS ORDERED: ALBUTEROL NEBULIZED 2.5 MG/3 ML INHALATION PRN (23:15)
[2019-05-22] MEDS ORDERED: CITALOPRAM HYDROBROMIDE 20 MG TAB PO SCH (23:30)
[2019-05-22] MEDS ORDERED: CYANOCOBALAMIN 500 MCG TAB PO SCH (23:30)
[2019-05-22] MEDS ORDERED: ATORVASTATIN 80 MG TAB PO SCH (23:30)
[2019-05-22] MEDS ORDERED: TEMAZEPAM 15 MG CAP PO SCH (23:30)
[2019-05-22] MEDS: METOPROLOL TARTRATE 25 MG TAB PO SCH (23:57)
[2019-05-22] MEDS: TICAGRELOR 90 MG TAB PO SCH (23:57)
[2019-05-23 04:11] VITALS: RESP 16
[2019-05-23] MEDS: NITROGLYCERIN OINT 1 INCH/GM PACKET TOPICAL SCH ×3 (04:46→11:04)
[2019-05-23] MEDS ORDERED: IPRATROPIUM 0.5 MG/2.5 ML NEBU INHALATION SCH (08:00)
[2019-05-23] MEDS ORDERED: CHOLECALCIFEROL 1,000 UNIT TAB PO SCH (09:00)
[2019-05-23] MEDS ORDERED: ASPIRIN 325 MG TAB PO SCH (09:00)
[2019-05-23] MEDS ORDERED: SPIRONOLACTONE 25 MG TAB PO SCH (09:00)
[2019-05-23 10:01] LABS: D-Dimer 0.18 mg/L FEU (<0.60); Partial Thromboplastin Time 81.7 sec (22.0-30.0)
[2019-05-23] MEDS ORDERED: SODIUM CHLORIDE 0.9% 1,000 ML in EMPTY BAG 1 BAG IV ONE (10:29)
[2019-05-23] MEDS ORDERED: ALPRAZolam 0.25 MG TAB PO PRN (10:29)
[2019-05-23] MEDS ORDERED: ALPRAZolam 0.5 MG TAB PO PRN (10:29)
[2019-05-23 10:41] LABS: Cholesterol 107 mg/dL (<200); HDL Cholesterol 60 mg/dL (40-60); LDL Cholesterol,Calculated 38 mg/dL (0-99); Triglycerides 45 mg/dL (<150)
--- NOTE | 2019-05-23 10:44 | P.CRDCN ---
History of Present Illness History of present illness: HISTORY OF PRESENTING ILLNESS This is a pleasant 49-year-old female past medical history significant for coronary artery disease s/p PCI of the diagonal branch, ischemic cardiomyop athy, myocardial infarction, hypertension, dyslipidemia and chronic nicotine dependence. She follows in the office with Dr. Denney. We have been asked to see in consultation for chest pain. She states yesterday she felt increasingly fatigued and somewhat light headed. This was persistent for a couple hours. Then she started to develop a pain in the epigastric region with radiation into the chest. The pain in the chest was a heavy pressure sensation. There was no radiation to the arm, neck or jaw. Upon arrival to the ER she was having ongoing chest pain. Nitropaste was applied and her pain subsided. She has been chest pain free since that time. Breathing has stabilized as well. April 24, 2019 she suffered a NSTEMI with lateral wall motion abnormalities. EF was 35%. She had a sub-totally occluded diagonal branch with otherwise normal coronary arteries. She underwent successful PCI of the diagonal branch at that time with a drug-eluting stent. She is maintained on dual anti-platelet therapy. DIAGNOSTICS EKG reveals sinus mechanism with T-wave inversions in the high lateral leads, c onsistent with previous EKG. No acute changes. Chest xray negative for an acute cardiopulmonary process. Laboratory reviewed, CBC unremarkable d-dimer 0.18, sodium 138, potassium 4.1, creatinine 0.93, magnesium 2.0, cardiac enzymes negative x3. Current cardiac medications include aspirin 81 mg daily, atorvastatin 80 mg daily, lisinopril 2.5 mg daily, Lopressor 25 mg twice a day, Aldactone 50 mg da maximilian and brilinta 90 mg twice a day. REVIEW OF SYSTEMS At the time of my exam: CONSTITUTIONAL: Denies fever or chills. CARDIOVASCULAR: Denies chest pain, shortness of breath, orthopnea, PND or palpit ations. RESPIRATORY: Denies cough. GASTROINTESTINAL: Denies abdominal pain, diarrhea, constipation, nausea or vomiting. MUSCULOSKELETAL: Denies myalgias. NEUROLOGIC: Denies numbness, tingling or weakness. ENDOCRINE: Denies fatigue, weight change, polydipsia or polyurina. GENITOURINARY: Denies burning, hematuria or urgency with micturation. HEMATOLOGIC: Denies history of anemia or bleeding. PHYSICAL EXAMINATION Blood pressure 93/52 heart rate 64 afebrile and maintaining oxygen saturation on room air. CONSTITUTIONAL: No apparent distress. HEENT: Head is normocephalic. Pupils are equal, round. Sclerae anicteric. Mucous membranes of the mouth are moist. No JVD. No carotid bruit. CHEST EXAMINATION: Lungs are clear to auscultation. No chest wall tenderness is noted on palpation or with deep breathing. HEART EXAMINATION: Regular rate and rhythm. S1, S2 heard. No murmurs, gallops or rub. ABDOMEN: Soft, nontender. Positive bowel sounds. EXTREMITIES: 2+ peripheral pulses, no lower extremity edema and no calf tenderness. NEUROLOGIC EXAMINATION: Patient is awake, alert and oriented x3. ASSESSMENT Chest pain, an acute event has been ruled out. Coronary artery disease s/p recent PCI of the diagonal branch of the LAD Ischemic cardiomyopathy, EF 35% Chronic systolic heart failure, currently euvolemic Hypertension Dyslipidemia History of myocardial infarction 04/2019 PLAN Recommend proceeding with coronary angiography to assess for in-stent restenosis. I have discussed the risks, benefits and alternative therapies for the above-mentioned procedure and for both sedation/analgesia as well as necessary blood product administration, if indicated, as they pertain to this patient. The patient has indicated understanding and acceptance of the risks and procedures discussed. Repeat limited echo to assess LV function. Initiate on protonix 40 mg daily. Assess for resolution of epigastric discomfort. Further recommendations to follow based on clinical course. Thank you kindly for this consultation. Nurse Practitioner note has been reviewed, I agree with a documented findings and plan of care. Patient was seen and examined. Past Medical History Past Medical History: Chest Pain / Angina Additional Past Medical History / Comment(s): 04/24/2019 NSTEMI History of Any Multi-Drug Resistant Organisms: None Reported Past Surgical History: Cholecystectomy, Heart Catheterization With Stent, Orthopedic Surgery, Tubal Ligation Additional Past Surgical History / Comment(s): RIGHT AND LEFT HIP SURGERY for "pelvic tilt". 04/24/2019 NSTEMI with (L) Heart cath and Xience 2.5/15mm stent x 1 to Diag1 (by Dr. Denney) Past Anesthesia/Blood Transfusion Reactions: No Reported Reaction Date of Last Stent Placement:: 04/24/2019 Past Psychological History: Depression Smoking Status: Former smoker Past Alcohol Use History: None Reported Past Drug Use History: None Reported - Past Family History Mother Family Medical History: Cancer Medications and Allergies Home Medications Medication Instructions Recorded Confirmed Type Cholecalciferol [Vitamin D3 (25 1,000 unit PO DAILY 09/06/17 05/22/19 History Mcg = 1000 Iu)] Citalopram Hydrobromide [CeleXA] 20 mg PO HS 09/06/17 05/22/19 History Eszopiclone [Lunesta] 3 mg PO HS 09/06/17 05/22/19 History Progesterone, Micronized 100 mg PO HS 09/06/17 05/22/19 History [Progesterone] Cyanocobalamin (Vitamin B-12) 1,000 mcg PO HS 04/24/19 05/22/19 History [Vitamin B-12] Estradiol [Estradiol 0.1 MG Patch] 1 patch TRANSDERM ARIAS 04/24/19 05/22/19 History Albuterol Inhaler [Ventolin Hfa 1 - 2 puff INHALATION RT-Q6H PRN 04/26/19 05/22/19 Rx Inhaler] #1 inhaler Aspirin 81 mg PO DAILY chew 04/26/19 05/22/19 Rx Atorvastatin [Lipitor] 80 mg PO HS #30 tab 04/26/19 05/22/19 Rx Lisinopril [Zestril] 2.5 mg PO DAILY@1400 #30 tab 04/26/19 05/22/19 Rx Metoprolol Tartrate [Lopressor] 25 mg PO BID #60 tab 04/26/19 05/22/19 Rx Nitroglycerin Sl Tabs [Nitrostat] 0.4 mg SUBLINGUAL Q5M PRN #25 tab 04/26/19 05/22/19 Rx Ticagrelor [Brilinta] 90 mg PO BID #60 tab 04/26/19 05/22/19 Rx Spironolactone 50 mg PO DAILY 05/22/19 05/22/19 History Tiotropium Moody [Spiriva] 1 cap INHALATION RT-DAILY 05/22/19 05/22/19 History Allergies Allergy/AdvReac Type Severity Reaction Status Date / Time aspirin Allergy Rash/Hives, Verified 05/22/19 22:50 SOB latex Allergy Rash/Hives Verified 05/22/19 22:50 Opioids-Meperidine and Allergy Dyspnea, Verified 01/09/20 22:50 Related HIVES Physical Exam Vitals: Vital Signs Temp Pulse Pulse Pulse Resp BP BP 05/23/19 07:05 68 05/23/19 07:00 97.5 F L 64 16 93/52 05/23/19 06:55 68 05/23/19 04:00 98.0 F 65 16 94/57 05/22/19 22:45 98.0 F 78 18 113/71 05/22/19 22:14 98.2 F 68 18 114/55 05/22/19 20:21 64 18 113/66 05/22/19 19:28 65 18 109/62 05/22/19 18:34 98.0 F 76 20 104/68 Pulse Ox 05/23/19 07:05 05/23/19 07:00 05/23/19 06:55 05/23/19 04:00 97 05/22/19 22:45 99 05/22/19 22:14 98 05/22/19 20:21 97 05/22/19 19:28 100 05/22/19 18:34 99 Intake and Output 05/22/19 05/23/19 05/23/19 22:59 06:59 14:59 Intake Total 60.04 Balance 60.04 Intake: Intake, IV Titration 60.04 Amount Heparin Sod,Pork in 0.45% 60.04 NaCl 25,000 unit In 0.45 % NaCl 1 250ml.bag @ 11 UNITS/KG/HR 9.979 mls/hr IV .Q24H [facility] Rx#: [id number] Oral 0 Other: Voiding Method Toilet Toilet # Voids 1 Weight 90.718 kg Results 05/22/19 19:21 05/22/19 19:21 Cardiac Enzymes 05/22/19 05/22/19 05/23/19 Range/Units 19:21 19:21 01:23 AST 33 (14-36) U/L Troponin I <0.012 <0.012 (0.000-0.034) ng/mL Coagulation 05/22/19 05/23/19 Range/Units 19:21 01:23 PT 9.8 (9.0-12.0) sec APTT 22.6 38.9 H (22.0-30.0) sec CBC 05/22/19 Range/Units 19:21 WBC 9.0 (3.8-10.6) k/uL RBC 4.36 (3.80-5.40) m/uL Hgb 13.7 (11.4-16.0) gm/dL Hct 39.5 (34.0-46.0) % Plt Count 258 (150-450) k/uL Comprehensive Metabolic Panel 05/22/19 Range/Units 19:21 Sodium 138 (137-145) mmol/L Potassium 4.1 (3.5-5.1) mmol/L Chloride 104 (98-107) mmol/L Carbon Dioxide 22 (22-30) mmol/L BUN 21 H (7-17) mg/dL Creatinine 0.93 (0.52-1.04) mg/dL Glucose 97 (74-99) mg/dL Calcium 9.7 (8.4-10.2) mg/dL AST 33 (14-36) U/L ALT 33 (4-34) U/L Alkaline Phosphatase 111 (38-126) U/L Total Protein 7.6 (6.3-8.2) g/dL Albumin 4.7 (3.5-5.0) g/dL Current Medications Generic Name Dose Route Start Last Admin Trade Name Freq PRN Reason Stop Dose Admin Albuterol Sulfate 2.5 mg 05/22/19 23:15 Ventolin Nebulized INHALATION RT-Q6H PRN Wheezing Aspirin 325 mg 05/23/19 09:00 Aspirin PO DAILY [facility] Atorvastatin Calcium 80 mg 05/22/19 23:30 05/22/19 23:57 Lipitor PO 80 mg HS NAIN Administration Cholecalciferol 1,000 unit 05/23/19 09:00 Vitamin D3 (25 Mcg = 1000 Iu) PO DAILY [facility] Citalopram Hydrobromide 20 mg 05/22/19 23:30 05/22/19 23:57 Celexa PO 20 mg HS NAIN Administration Cyanocobalamin 1,000 mcg 05/22/19 23:30 05/22/19 23:57 Vitamin B-12 PO 1,000 mcg HS NAIN Administration Heparin Sodium (Porcine) 0 unit 05/22/19 23:00 05/23/19 02:23 Heparin IV 4,000 unit PER PROTOCOL PRN Administration Low PTT Protocol Heparin Sodium/Sodium Chloride 250 mls @ 9.979 mls/hr 05/22/19 19:45 05/23/19 02:19 25,000 unit/ Sodium Chloride IV 14 units/kg/hr .Q24H NAIN 12.701 mls/hr Titration Protocol 11 UNITS/KG/HR Ipratropium Moody 0.5 mg 05/23/19 08:00 05/23/19 06:58 Atrovent Nebulized INHALATION 0.5 mg RT-DAILY [facility] Administration Lisinopril 2.5 mg 05/23/19 14:00 Zestril PO DAILY@1400 [facility] Metoprolol Tartrate 25 mg 05/22/19 23:30 05/22/19 23:57 Lopressor PO 25 mg BID [facility] Administration Nitroglycerin 0.4 mg 05/22/19 20:12 Nitrostat SUBLINGUAL Q5M PRN Chest Pain Nitroglycerin 1 inch 05/23/19 00:00 05/23/19 04:46 Nitro-Bid Oint TOPICAL Not Given Q6HR [facility] Non-Formulary Medication 1 patch 05/25/19 09:00 Estradiol [Estradiol 0.1 Mg Patch] TOPICAL Arias@0900 [facility] Non-Formulary Medication 100 mg 05/23/19 21:00 Progesterone, Micronized [Progesterone] PO HS [facility] Spironolactone 50 mg 05/23/19 09:00 Aldactone PO DAILY NAIN Temazepam 30 mg 05/22/19 23:30 05/22/19 23:57 Restoril PO 30 mg HS [facility] Administration Ticagrelor 90 mg 05/22/19 23:30 05/22/19 23:57 Brilinta PO 90 mg BID [facility] Administration Intake and Output 05/22/19 05/23/19 05/23/19 22:59 06:59 14:59 Intake Total 60.04 Balance 60.04 Intake: Intake, IV Titration 60.04 Amount Heparin Sod,Pork in 0.45% 60.04 NaCl 25,000 unit In 0.45 % NaCl 1 250ml.bag @ 11 UNITS/KG/HR 9.979 mls/hr IV .Q24H [facility] Rx#: [id number] Oral 0 Other: Voiding Method Toilet Toilet # Voids 1 Weight 90.718 kg 05/22/19 19:21 05/22/19 19:21
[2019-05-23] MEDS ORDERED: PANTOPRAZOLE 40 MG TABLET PO SCH (10:45)
[2019-05-23] MEDS: METOPROLOL TARTRATE 25 MG TAB PO SCH (11:07)
[2019-05-23] MEDS: TICAGRELOR 90 MG TAB PO SCH (11:07)
[2019-05-23] MEDS ORDERED: LIDOCAINE 1% INJ 10MG/ML (20 ML MDV) ONE (11:33)
[2019-05-23] MEDS ORDERED: VERAPAMIL 2.5 MG/ML 2 ML AMP ONE (11:38)
[2019-05-23] MEDS ORDERED: fentaNYL (PF) 50 MCG/ML 2 ML AMP ONE (11:39)
[2019-05-23] MEDS ORDERED: HEPARIN SODIUM 1,000 UN/ML (10ML VL) ONE (11:49)
[2019-05-23] MEDS ORDERED: fentaNYL (PF) 50 MCG/ML 2 ML AMP IVP ONE (11:56)
[2019-05-23] MEDS ORDERED: SODIUM CHLORIDE 0.9% 1,000 ML IV ONE (11:57)
[2019-05-23] MEDS ORDERED: LIDOCAINE 1% INJ 10MG/ML (20 ML MDV) SQ ONE (11:59)
[2019-05-23] MEDS ORDERED: VERAPAMIL SYRINGE (5 MG/10 ML) INTRAARTER ONE (11:59)
--- NOTE | 2019-05-23 12:01 | ECHOF ---
Referral Reason:cp MEASUREMENTS -------- HEIGHT: 172.7 cm WEIGHT: 90.7 kg BP: 93/52 FINDINGS -------- This was a technically good study. Pt had Echo 05/01: Limited Echo for LV Function. .mild ant lateral hypokinesia. There is no pericardial effusion. CONCLUSIONS -------- 1. This was a technically good study. 2. Overall left ventricular systolic function is low-normal with, an EF between 50 - 55 %. 3. There is no pericardial effusion. PICKER BOX OPERATOR: Nasima Fontaine RDCS
[2019-05-23] MEDS ORDERED: CLOPIDOGREL 75 MG TAB ONE (12:07)
[2019-05-23] MEDS ORDERED: HEPARIN SODIUM 1,000 UN/ML (10ML VL) IV ONE (12:10)
[2019-05-23] MEDS ORDERED: CLOPIDOGREL 75 MG TAB PO ONE (12:11)
[2019-05-23] MEDS ORDERED: IOPAMIDOL-370 125ML BTL INJ ONE (12:14)
[2019-05-23] MEDS ORDERED: RX INFO: IV CONTRAST WAS GIVEN 1 EACH MISC MISCELLANE PRN (12:29)
[2019-05-23] MEDS ORDERED: SODIUM CHLORIDE 0.9% 1,000 ML IV SCH (12:30)
[2019-05-23 12:47] VITALS: TEMP 97.6
--- NOTE | 2019-05-23 13:18 | CC ---
CARDIAC CATHETERIZATION REPORT Mrs. Orellana is a 49-year-old female who a few weeks ago presented with a non ST-segment elevation myocardial infarction, underwent stenting of the diagonal branch. She had evidence of segmental wall motion abnormality at that time. She was readmitted to the hospital yesterday with recurrent symptoms of severe chest discomfort with dyspnea. Her cardiac enzymes and EKG did not show any acute changes. She was evaluated by Dr. Sahra Sheets and because of her presentation, recommendation made regarding cardiac catheterization, the procedures, risks, and complications were discussed with the patient who is in full understanding and agreement. PROCEDURE: Patient was brought to the laboratory technical specialist in a fasting semi-sedated state after receiving fentanyl and Benadryl and achieved moderate conscious sedated state. Using Xylocaine anesthesia and Seldinger technique, a 6-Namibian sheath was introduced in the right radial artery. Selective right and left coronary angiography performed using 5-Namibian 3.5 bend right and left Talia catheter, multiple views of the coronary artery including hemiaxial views obtained. Following that, a 5-Namibian tight pigtail catheter was introduced in the left ventricle and a 30-degree CASTRO view of the left ventricle was obtained. Following that, catheter and sheaths were removed hemostasis was obtained with deployment of a TR band. There was no immediate complication. Patient is returned to room in stable condition. FINDINGS: LEFT MAIN: This is a large-sized vessel, bifurcating into left circumflex, left anterior descending artery. Left main coronary artery has no evidence of high-grade stenosis. LEFT ANTERIOR DESCENDING ARTERY: This is a large-sized vessel reaching toward the apex with a wraparound apex around apex segment giving rise to a large diagonal branch. The stented segment of the diagonal branch revealed no evidence of restenosis or thrombosis. The flow into the diagonal branch is a ALVARO-3 flow. LEFT CIRCUMFLEX: This is a nondominant large vessel giving rise to 2 obtuse marginal branch. The left circumflex as well as branches have no evidence of obstructive coronary artery disease. RIGHT CORONARY ARTERY: This is a large dominant vessel, bifurcating into PDA and posterolateral segment and branches. The right coronary artery and its branches have no evidence of obstructive disease. LEFT VENTRICULOGRAM: Performed in 30-degree CASTRO view and revealed mid anterior wall hypokinesis. Ejection fraction is 45%. There was catheter - induced mitral regurgitation. HEMODYNAMICS: There was no gradient across the aortic valve. The left ventricular end-diastolic pressure was 16-20 mmHg. CONCLUSION: 1. No evidence of restenosis or thrombosis of the diagonal branch stent. 2. No evidence of significant obstructive disease in the left circumflex and the right coronary artery. 3. Mildly impaired left ventricular systolic function. RECOMMENDATION: 1. In view of finding anatomy, I recommend continue medical therapy with aggressive coronary risk modifications being initiated. She will be switched from Brilinta to Plavix in case that this is contributing to her dyspnea on exertion. Those findings and recommendation were discussed with the patient and her family who are in full understanding and agreement. 2. 3. Duration of procedure is 18 minutes. MMODL / IJN: [id number] /
--- NOTE | 2019-05-23 13:33 | LTR ---
DATE OF SERVICE: 05/23/2019 RE: EstebanBouchra Dear Dr. Linares: I had the pleasure to perform cardiac catheterization on Mrs. Orellana at [facility] on May 23, 2019 and a full copy of the procedure note will be forwarded to you. As you know, she had recently sustained a non-STEMI and underwent stenting of the diagonal branch. She presented yesterday with symptoms of chest discomfort reminding her of the way she felt at that time, and because of that, she underwent repeat cardiac catheterization that revealed no evidence of thrombosis or restenoses at the site of the prior stenting. At this time, I will continue her present medical therapy, except switching the Brilinta to Plavix to see if that will improve her dyspnea. I will keep you updated on progress and thank you again for allowing me to participate in this patient's care. Please feel free to call for any questions. Sincerely yours, MD GIACOMO Bañuelos / LEONARDON: [id number] /
[2019-05-23] MEDS ORDERED: LISINOPRIL 2.5 MG TAB PO SCH (14:00)
[2019-05-23 17:07] VITALS: BP 95/48; PULSE 59
--- NOTE | 2019-05-23 20:26 | P.HPIM ---
History of Present Illness H&P Date: 05/23/19 Chief Complaint: Chest pain Chief Complaint: Chest pain History of present complaint: This is a pleasant 49-year-old patient of Dr. Linares. Chronic stable medical conditions include depression, hypertension, GERD, patient is smoker. On 04/24/2019 patient is an acute TX and underwent intervention to the first diagonal. Had a stent placed. Patient is being drinks close well since then. Patient since then has about 5 episodes of chest pressure and is taking nitroglycerin. This occasionally can she had midsternal chest pressure. Some shortness of breath. [place] a pressure- like activity. No dizziness no lightheadedness. No fever no chills. Was somewhat similar to his initial presentation. Decided to finally come in for the same. Admitted with unstable angina. Cardiology was consulted who decided to do cardiac catheterization Review of systems: GEN.: Tired EYES: None HEENT: None NECK: None RESPIRATORY: None CARDIOVASCULAR: As above GASTROINTESTINAL: Reflux rarely GENITOURINARY: None MUSCULOSKELETAL: None LYMPHATICS: None HEMATOLOGICAL: None PSYCHIATRY: None NEUROLOGICAL: None Past medical history to include: Depression, hypertension, GERD, acute TX 04/24/2019 with stent to the first diagonal Social history: Smoked a pack a day for over 30 years. Stopped 6 weeks ago . Employed. Family history: Of heart disease Physical examination: VITAL SIGNS: 98, 69, 16, 88/62, 97% room air GENERAL:BMI BMI 30.4, sitting up comfortable EYES: Pupils equal. Conjunctiva normal. HEENT: External appearance of nose and ears normal, oral cavity grossly normal. NECK: JVD not raised; masses not palpable. HEART: First and second heart sounds are normal; no edema. LUNGS: Respiratory rate normal; decreased breath sounds mild wheezing. ABDOMEN: Soft, nontender, liver spleen not palpable, no masses palpable. PSYCH: Alert and oriented x3; mood and affect normal. INVESTIGATIONS, reviewed in the clinical context: White count 90 with 3.7 platelets 258 potassium 4.1 creatinine 0.93 Troponin I 3 negative 2-D echo from last admission-EF 35-40%, with wall motion abnormality ,EKG tracing personally reviewed by me-normal sinus rhythm Chest x-ray film personally reviewed by me-clear Assessment: -Possible unstable angina or vasospasm in a patient with known coronary artery disease -cardiac catheterization with stenting to the first diagonal branch with the initial stenosis 99 percent. On 04/24/2019 -Obesity BMI 30.4 -Depression not otherwise specified -Essential hypertension -Chronic nicotine dependence patient cigarette smoker -GERD -COPD in a ex-smoker -Acute ischemic cardiomyopathy from EF 35-40% from underlying acute TX Plan: Home medications were continued. Patient is put on IV heparin. Cardiology was consulted. Patient was to be taken for cardiac catheterization. Past Medical History Past Medical History: Chest Pain / Angina Additional Past Medical History / Comment(s): 04/24/2019 NSTEMI History of Any Multi-Drug Resistant Organisms: None Reported Past Surgical History: Cholecystectomy, Heart Catheterization With Stent, Orthopedic Surgery, Tubal Ligation Additional Past Surgical History / Comment(s): RIGHT AND LEFT HIP SURGERY for "pelvic tilt". 04/24/2019 NSTEMI with (L) Heart cath and Xience 2.5/15mm stent x 1 to Diag1 (by Dr. Denney) Past Anesthesia/Blood Transfusion Reactions: No Reported Reaction Date of Last Stent Placement:: 04/24/2019 Past Psychological History: Depression Smoking Status: Former smoker Past Alcohol Use History: None Reported Past Drug Use History: None Reported - Past Family History Mother Family Medical History: Cancer Medications and Allergies Home Medications Medication Instructions Recorded Confirmed Type Cholecalciferol [Vitamin D3 (25 1,000 unit PO DAILY 09/06/17 05/22/19 History Mcg = 1000 Iu)] Citalopram Hydrobromide [CeleXA] 20 mg PO HS 09/06/17 05/22/19 History Eszopiclone [Lunesta] 3 mg PO HS 09/06/17 05/22/19 History Progesterone, Micronized 100 mg PO HS 09/06/17 05/22/19 History [Progesterone] Cyanocobalamin (Vitamin B-12) 1,000 mcg PO HS 04/24/19 05/22/19 History [Vitamin B-12] Estradiol [Estradiol 0.1 MG Patch] 1 patch TRANSDERM JACOBS 04/24/19 05/22/19 History Albuterol Inhaler [Ventolin Hfa 1 - 2 puff INHALATION RT-Q6H PRN 04/26/19 05/22/19 Rx Inhaler] #1 inhaler Aspirin 81 mg PO DAILY chew 04/26/19 05/22/19 Rx Atorvastatin [Lipitor] 80 mg PO HS #30 tab 12/14/19 01/09/20 Rx Lisinopril [Zestril] 2.5 mg PO DAILY@1400 #30 tab 04/26/19 05/22/19 Rx Nitroglycerin Sl Tabs [Nitrostat] 0.4 mg SUBLINGUAL Q5M PRN #25 tab 04/26/19 05/22/19 Rx Tiotropium Batson [Spiriva] 1 cap INHALATION RT-DAILY 05/22/19 05/22/19 History Clopidogrel [Plavix] 75 mg PO DAILY #90 tab 05/23/19 Rx Isosorbide Mononitrate ER [Imdur] 15 mg PO HS #30 dose 05/23/19 Rx Metoprolol Tartrate [Lopressor] 12.5 mg PO TID #60 tab 05/23/19 05/22/19 Rx Spironolactone 25 mg PO DAILY #0 05/23/19 05/22/19 Rx Allergies Allergy/AdvReac Type Severity Reaction Status Date / Time aspirin Allergy Rash/Hives, Verified 05/22/19 22:50 SOB latex Allergy Rash/Hives Verified 05/22/19 22:50 Opioids-Meperidine and Allergy Dyspnea, Verified 05/22/19 22:50 Related HIVES Physical Exam Vitals: Vital Signs Temp Pulse Pulse Pulse Resp BP BP 05/23/19 07:05 68 05/23/19 07:00 97.5 F L 64 16 93/52 05/23/19 06:55 68 05/23/19 04:00 98.0 F 65 16 94/57 05/22/19 22:45 98.0 F 78 18 113/71 05/22/19 22:14 98.2 F 68 18 114/55 05/22/19 20:21 64 18 113/66 05/22/19 19:28 65 18 109/62 05/22/19 18:34 98.0 F 76 20 104/68 Pulse Ox 05/23/19 07:05 05/23/19 07:00 05/23/19 06:55 05/23/19 04:00 97 05/22/19 22:45 99 05/22/19 22:14 98 05/22/19 20:21 97 05/22/19 19:28 100 05/22/19 18:34 99 Intake and Output 05/22/19 05/23/19 05/23/19 22:59 06:59 14:59 Intake Total 60.04 Balance 60.04 Intake: Intake, IV Titration 60.04 Amount Heparin Sod,Pork in 0.45% 60.04 NaCl 25,000 unit In 0.45 % NaCl 1 250ml.bag @ 11 UNITS/KG/HR 9.979 mls/hr IV .Q24H [facility] Rx#: [id number] Oral 0 Other: Voiding Method Toilet Toilet # Voids 1 Weight 90.718 kg Results CBC & Chem 7: 05/22/19 19:21 05/22/19 19:21 Labs: Abnormal Lab Results - Last 24 Hours (Table) 05/22/19 05/23/19 05/23/19 Range/Units 19:21 01:23 09:22 APTT 38.9 H 81.7 H (22.0-30.0) sec BUN 21 H (7-17) mg/dL Thrombosis Risk Factor Assmnt - Choose All That Apply Any of the Below Risk Factors Present?: Yes Each Factor Represents 1 point: Age 41-60 years, Obesity (BMI >25) Other Risk Factors: No Other congenital or acquired thrombophilia - If yes, enter type in comment: No Thrombosis Risk Factor Assessment Total Risk Factor Score: 2 Thrombosis Risk Factor Assessment Level: Low Risk
--- NOTE | 2019-05-23 20:29 | P.DS ---
Providers Date of admission: 05/22/19 20:12 Expected date of discharge: 05/23/19 Attending physician: Cale Carrillo Consults: 05/22/19 20:12 Consult Physician Urgent Consulting Provider: [facility] Consult Reason/Comments: Unstable angina Do you want consulting provider notified?: Yes Primary care physician: Omar Linares [facility] Course: Chief Complaint: Chest pain Hospital course: This is a pleasant 49-year-old patient of Dr. Linares. Chronic stable medical conditions include depression, hypertension, GERD, patient is smoker. On 04/24/2019 patient is an acute SD and underwent intervention to the first diagonal. Had a stent placed. Patient is being drinks close well since then. Patient since then has about 5 episodes of chest pressure and is taking nitroglycerin. This occasionally can she had midsternal chest pressure. Some shortness of breath. [place] a pressure- like activity. No dizziness no lightheadedness. No fever no chills. Was somewhat similar to his initial presentation. Decided to finally come in for the same. Admitted with unstable angina. Given some similarity to her prior presentation patient stated the cardiac lab. There is no acute stenosis found. Troponins were negative. Patient have underlying vasospasm. Small dose of Imdur was added. Blood pressures running on the lower side has Lopressor dose adjusted and also dose of Aldactone was cut back. Care was discussed with the patient. Consultation: Dr. VC Sheets from cardiology Physical examination: VITAL SIGNS: 97.6, 65, 95/53, 98% room air GENERAL: BMI 30.4, sitting up comfortable EYES: Pupils equal. Conjunctiva normal. HEENT: External appearance of nose and ears normal, oral cavity grossly normal. NECK: JVD not raised; masses not palpable. HEART: First and second heart sounds are normal; no edema. LUNGS: Respiratory rate normal; decreased breath sounds mild wheezing. ABDOMEN: Soft, nontender, liver spleen not palpable, no masses palpable. PSYCH: Alert and oriented x3; mood and affect normal. INVESTIGATIONS, reviewed in the clinical context: White count 90 with 3.7 platelets 258 potassium 4.1 creatinine 0.93 Troponin I 3 negative 2-D echo from last admission-EF 35-40%, with wall motion abnormality ,EKG tracing personally reviewed by me-normal sinus rhythm Chest x-ray film personally reviewed by me-clear Assessment: -Possible vasospasm in a patient with known coronary artery disease -Coronary artery disease with stent to the first diagonal on 04/24/2019 -Obesity BMI 30.4 -Depression not otherwise specified -Essential hypertension -Chronic nicotine dependence patient cigarette smoker -GERD -COPD in a ex-smoker -Chronic ischemic cardiomyopathy from EF 35-40% from underlying CAD Disposition: Home Patient Condition at Discharge: Stable Plan - Discharge Summary New Discharge Prescriptions: New Clopidogrel [Plavix] 75 mg PO DAILY #90 tab Isosorbide Mononitrate ER [Imdur] 15 mg PO HS #30 dose Continue Citalopram Hydrobromide [CeleXA] 20 mg PO HS Cholecalciferol [Vitamin D3 (25 Mcg = 1000 Iu)] 1,000 unit PO DAILY Progesterone, Micronized [Progesterone] 100 mg PO HS Eszopiclone [Lunesta] 3 mg PO HS Estradiol [Estradiol 0.1 MG Patch] 1 patch TRANSDERM JACOBS Cyanocobalamin (Vitamin B-12) [Vitamin B-12] 1,000 mcg PO HS Aspirin 81 mg PO DAILY chew Atorvastatin [Lipitor] 80 mg PO HS #30 tab Nitroglycerin Sl Tabs [Nitrostat] 0.4 mg SUBLINGUAL Q5M PRN #25 tab PRN Reason: Chest Pain Albuterol Inhaler [Ventolin Hfa Inhaler] 1 - 2 puff INHALATION RT-Q6H PRN #1 inhaler PRN Reason: Wheezing Lisinopril [Zestril] 2.5 mg PO DAILY@1400 #30 tab Tiotropium [place] [Spiriva] 1 cap INHALATION RT-DAILY Changed Metoprolol Tartrate [Lopressor] 12.5 mg PO TID #60 tab Spironolactone 25 mg PO DAILY #0 Discontinued Ticagrelor [Brilinta] 90 mg PO BID #60 tab Discharge Medication List Cholecalciferol [Vitamin D3 (25 Mcg = 1000 Iu)] 1,000 unit PO DAILY 09/06/17 [History] Citalopram Hydrobromide [CeleXA] 20 mg PO HS 09/06/17 [History] Eszopiclone [Lunesta] 3 mg PO HS 09/06/17 [History] Progesterone, Micronized [Progesterone] 100 mg PO HS 09/06/17 [History] Cyanocobalamin (Vitamin B-12) [Vitamin B-12] 1,000 mcg PO HS 04/24/19 [History] Estradiol [Estradiol 0.1 MG Patch] 1 patch TRANSDERM JACOBS 04/24/19 [History] Albuterol Inhaler [Ventolin Hfa Inhaler] 1 - 2 puff INHALATION RT-Q6H PRN #1 inhaler 04/26/19 [Rx] Aspirin 81 mg PO DAILY chew 04/26/19 [Rx] Atorvastatin [Lipitor] 80 mg PO HS #30 tab 04/26/19 [Rx] Lisinopril [Zestril] 2.5 mg PO DAILY@1400 #30 tab 04/26/19 [Rx] Nitroglycerin Sl Tabs [Nitrostat] 0.4 mg SUBLINGUAL Q5M PRN #25 tab 04/26/19 [Rx] Tiotropium [place] [Spiriva] 1 cap INHALATION RT-DAILY 05/22/19 [History] Clopidogrel [Plavix] 75 mg PO DAILY #90 tab 05/23/19 [Rx] Isosorbide Mononitrate ER [Imdur] 15 mg PO HS #30 dose 05/23/19 [Rx] Metoprolol Tartrate [Lopressor] 12.5 mg PO TID #60 tab 05/23/19 [Rx] Spironolactone 25 mg PO DAILY #0 05/23/19 [Rx] Follow up Appointment(s)/Referral(s): Megan Denney MD [STAFF PHYSICIAN] - 05/30/19 9:45 am () Omar Linares DO [Primary Care Provider] - 1-2 days Patient Instructions/Handouts: After Radial Heart Catheterization (GEN) Activity/Diet/Wound Care/Special Instructions: Note change of dose of Lopressor and Aldactone. No new prescription. Discharge Disposition: HOME SELF-CARE
[2019-05-23] MEDS ORDERED: PROGESTERONE MICRONIZED 100 MG PO SCH (21:00)
[2019-05-24] MEDS ORDERED: CLOPIDOGREL 75 MG TAB PO SCH (09:00)
[2019-05-24] MEDS ORDERED: SPIRONOLACTONE 25 MG TAB PO SCH (09:00)
[2019-05-24] MEDS ORDERED: ASPIRIN 81 MG PO SCH (09:00)
[2019-05-25] MEDS ORDERED: ESTRADIOL TOPICAL SCH (09:00)
== END 2019-05-23 17:46 | disposition home or self-care (01) ==
LOC: EC 18:29 → 1SOBS 20:12
PROVIDERS: ADMIT Hospitalist; ATTEND Hospitalist
DX: I25.10 Atherosclerotic heart disease of native coronary artery without angina pectoris (principal); Z95.5 Presence of coronary angioplasty implant and graft; E66.9 Obesity, unspecified; Z68.30 Body mass index [BMI] 30.0-30.9, adult; F32.9 Major depressive disorder, single episode, unspecified; I11.0 Hypertensive heart disease with heart failure; I50.22 Chronic systolic (congestive) heart failure; K21.9 Gastro-esophageal reflux disease without esophagitis; J44.9 Chronic obstructive pulmonary disease, unspecified; I25.5 Ischemic cardiomyopathy; I34.0 Nonrheumatic mitral (valve) insufficiency; I21.4 Non-ST elevation (NSTEMI) myocardial infarction; E78.5 Hyperlipidemia, unspecified; E78.00 Pure hypercholesterolemia, unspecified; Z87.891 Personal history of nicotine dependence; Z79.899 Other long term (current) drug therapy; Z79.890 Hormone replacement therapy; Z79.82 Long term (current) use of aspirin; Z79.02 Long term (current) use of antithrombotics/antiplatelets; Z88.6 Allergy status to analgesic agent; Z91.040 Latex allergy status; Z88.5 Allergy status to narcotic agent; Z90.49 Acquired absence of other specified parts of digestive tract; Z98.890 Other specified postprocedural states; Z98.51 Tubal ligation status; Z80.9 Family history of malignant neoplasm, unspecified
CPT/HCPCS: 93005 ×2; 96366 ×3; 96376 ×2; 96365; 99291; 36415; 94640; 93308; 93458; 85379; 80061; 80053; 83735; 84484 ×2; 85025; 85610; 85730 ×2; 71046; G0378 ×2; C1769; C1894; J1644 ×4; J2001; J3010; Q9967

== ENCOUNTER → 2019-11-06 | Outpatient (CLI) | payer BC ==
--- NOTE | 2019-11-07 10:52 | MM ---
Reason for exam: additional evaluation requested from prior study. Last mammogram was performed 1 year and 6 months ago. History: Patient is postmenopausal. Family history of breast cancer in maternal grandmother at age 42. Benign US biopsy breast VAD LT of the left breast, January 06, 2016. Benign US biopsy breast add'l VAD LT of the left breast, January 06, 2016. Benign US biopsy breast add'l VAD LT of the left breast, January 06, 2016. Taking estrogen for 1 year beginning at age 47. Taking progesterone for 1 year beginning at age 47. Physical Findings: Nurse did not find any significant physical abnormalities on exam. MG 3D Diag Mammo W/Cad SHAZIA Bilateral CC and MLO view(s) were taken. Prior study comparison: April 29, 2018, bilateral MG work up mamm w CAD BILAT. April 10, 2018, bilateral MG screening mammo w CAD. The breast tissue is heterogeneously dense. This may lower the sensitivity of mammography. Previous mammotome biopsy in the left breast. No significant new findings when compared with previous films. These results were verbally communicated with the patient and result sheet given to the patient on 11/06/19. ASSESSMENT: Benign, BI-RAD 2 RECOMMENDATION: Routine screening mammogram of both breasts in 1 year.
== END | disposition home or self-care (01) ==
LOC: RADMAMWWP 16:00
PROVIDERS: ATTEND Obstetrics & Gynecology
DX: R92.8 Other abnormal and inconclusive findings on diagnostic imaging of breast (principal)
CPT/HCPCS: 77062; 77066

== ENCOUNTER 2024-05-29 16:02 | Emergency (ER) | payer BC ==
[2024-05-29 16:13] VITALS: BP 120/84; PULSE 102; RESP 19; TEMP 97.7
--- NOTE | 2024-05-29 16:35 | ED ---
Chest Pain HPI - General Chief Complaint: Chest Pain Stated Complaint: chest pain Time Seen by Provider: 05/29/24 16:35 Source: patient Mode of arrival: ambulatory Limitations: no limitations - History of Present Illness Initial Comments: 54-year-old female presenting with chief complaint of chest pain. Started about 40 minutes ago. She has some radiation into the right sided jaw. Patient took some nitro which gave some relief but has not completely alleviated the pain, normally she has complete relief with nitro - Related Data Home Medications Medication Instructions Recorded Confirmed Cholecalciferol [Vitamin D3 (25 1,000 unit PO DAILY 09/06/17 05/22/19 Mcg = 1000 Iu)] Citalopram Hydrobromide [CeleXA] 20 mg PO HS 09/06/17 05/22/19 Eszopiclone [Lunesta] 3 mg PO HS 09/06/17 05/22/19 Progesterone, Micronized 100 mg PO HS 09/06/17 05/22/19 [Progesterone] Cyanocobalamin (Vitamin B-12) 1,000 mcg PO HS 04/24/19 05/22/19 [Vitamin B-12] estradioL [Estradiol 0.1 MG Patch] 1 patch TRANSDERM JACOBS 04/24/19 05/22/19 Tiotropium [place] [Spiriva] 1 cap INHALATION RT-DAILY 05/22/19 05/22/19 Previous Rx's Medication Instructions Recorded Albuterol Inhaler [Ventolin Hfa 1 - 2 puff INHALATION RT-Q6H PRN 04/26/19 Inhaler] #1 inhaler Aspirin 81 mg PO DAILY chew 04/26/19 Atorvastatin [Lipitor] 80 mg PO HS #30 tab 04/26/19 Nitroglycerin Sl Tabs [Nitrostat] 0.4 mg SUBLINGUAL Q5M PRN #25 tab 04/26/19 lisinopriL [Zestril] 2.5 mg PO DAILY@1400 #30 tab 04/26/19 Clopidogrel [Plavix] 75 mg PO DAILY #90 tab 05/23/19 Isosorbide Mononitrate ER [Imdur] 15 mg PO HS #30 dose 05/23/19 Metoprolol Tartrate [Lopressor] 12.5 mg PO TID #60 tab 05/23/19 Spironolactone 25 mg PO DAILY #0 01/10/20 Allergies Allergy/AdvReac Type Severity Reaction Status Date / Time aspirin Allergy Rash/Hives, Verified 05/29/24 16:13 SOB latex Allergy Rash/Hives Verified 05/29/24 16:13 Opioids-Meperidine and Allergy Dyspnea, Verified 05/29/24 16:13 Related HIVES Review of Systems ROS Statement: Those systems with pertinent positive or pertinent negative responses have been documented in the HPI. ROS Other: All systems not noted in ROS Statement are negative. Past Medical History Past Medical History: Chest Pain / Angina Additional Past Medical History / Comment(s): 04/24/2019 NSTEMI History of Any Multi-Drug Resistant Organisms: None Reported Past Surgical History: Cholecystectomy, Heart Catheterization With Stent, Orthopedic Surgery, Tubal Ligation Additional Past Surgical History / Comment(s): RIGHT AND LEFT HIP SURGERY for "pelvic tilt". 04/24/2019 NSTEMI with (L) Heart cath and Xience 2.5/15mm stent x 1 to Diag1 (by Dr. Denney) Past Anesthesia/Blood Transfusion Reactions: No Reported Reaction Date of Last Stent Placement:: 04/24/2019 Past Psychological History: Depression Smoking Status: Never smoker Past Alcohol Use History: None Reported Past Drug Use History: None Reported - Past Family History Mother Family Medical History: Cancer General Exam - General Exam Comments Initial Comments: Visual Physical Exam Vital signs reviewed General: Well-appearing, nontoxic, no acute distress. Head: Normocephalic, atraumatic Eyes: PERRLA, EOMI ENT: Airway patent Chest: Nonlabored breathing Skin: No visual rash, normal skin tone Neuro: Alert and oriented 3 Musculoskeletal: No gross abnormalities Limitations: no limitations Course Vital Signs 05/29/24 16:10 Temperature 97.7 F Pulse Rate 102 H Respiratory 19 Rate Blood Pressure 120/84 O2 Sat by Pulse 99 Oximetry Chest Pain MDM - MDM I performed the quick note portion of this visit, electronically signed Primitivo Garza PA-C Patient later eloped from the waiting room prior to complete evaluation Disposition Clinical Impression: Chest pain Disposition: LEFT AGAINST MEDICAL ADVICE Condition: Undetermined Referrals: Omar Linares DO [Primary Care Provider] - 1-2 days
--- NOTE | 2024-05-29 17:23 | XR ---
EXAMINATION TYPE: XR chest 2V DATE OF EXAM: 05/29/2024 5:15 PM COMPARISON: 05/22/2019 CLINICAL INDICATION: Female, 54 years old with history of Chest Pain, TECHNIQUE: XR chest 2V view(s) obtained. FINDINGS: The heart size is normal. The pulmonary vasculature is normal. The lungs are clear. IMPRESSION: 1. No acute pulmonary process. [facility], , 05/29/2024 5:21 PM
== END 2024-05-29 22:48 | disposition left against medical advice (07) ==
LOC: EC 16:02
DX: R07.9 Chest pain, unspecified (principal); Z91.040 Latex allergy status; Z88.5 Allergy status to narcotic agent; Z88.8 Allergy status to other drugs, medicaments and biological substances; Z53.29 Procedure and treatment not carried out because of patient's decision for other reasons
CPT/HCPCS: 71046; 93005; 99285